=== PATIENT | male | born 1990 | race Caucasian/White ===

== ENCOUNTER 2016-10-19 20:30 | Emergency (ER) | payer SELFPAY ==
[~2016-10-19] VITALS: Ht 175.3 cm; Wt 72.0 kg
[~2016-10-19 20:30] MED LIST: CEPH-460 PO; CLIN1CAP5 PO; DICL75TA PO
[2016-10-19 20:31] VITALS: BP 133/69; PULSE 113; RESP 16; TEMP 99.2; O2SAT 94
--- NOTE | 2016-10-19 20:56 | PD ---
Physical Exam Date Seen by Provider: Oct 19, 2016 Time Seen by Provider: 20:55 Narrative 26 yo male here for "Bad hiccups". Had it for two days. Vomiting because of the hiccups. No abdominal pain. Cannot keep anything down. No history of this in the past. No chest pain. No BM or urinary issues. Vitals are stable in triage. Awaiting Bed placement. Data Data Last Documented VS Vital Signs Date Time Temp Pulse Resp B/P Pulse Ox O2 Delivery O2 Flow Rate FiO2 10/19/16 20:31 99.2 113 16 133/69 94 Room Air [facility] Medical Record Reviewed: Yes Supervised Visit with MOE: Ferny Martinez Oct 19, 2016 20:56
[2016-10-19] MEDS ORDERED: SODIUM CHLOR 0.9% 1000 ML INJ 1,000 ML IV ONE (21:45)
[2016-10-19] MEDS ORDERED: CHLO25TA38 PO (23:12)
--- NOTE | 2016-10-19 23:12 | PD ---
HPI . Hiccups Chief Complaint: GI Complaint Time Seen by Provider: 21:25 Travel History International Travel<30 days: No Contact w/Intl Traveler<30days: No Traveled to known affect area: No History of Present Illness HPI This patient presents with chief complaint of hiccups 2 days. He states that the hiccups are so bad that it is making him vomit. He estimates 23 episodes of emesis today. No diarrhea. No fever. He does report some chest and abdominal soreness related to the hiccups. He has tried several things to relieve the hiccups without success. He has not noted anything that exacerbates them. [facility] Past Medical History GERD: Yes Hepatitis: Yes (C) Respiratory: Yes (PNEUMONIA) Immunizations Current: Yes Pneumonia: Yes Social History Alcohol Use: No (NO LONGER DRINKS) Tobacco Use: Yes (1PPD ) Substance Use: No (HX IV DRUG ABUSE) Allergies-Medications (Allergen,Severity, Reaction): Coded Allergies: Sulfa (Verified Allergy, Severe, 10/19/16) Reported Meds & Prescriptions Reported Meds & Active Scripts Active Review of Systems Except as stated in HPI: all other systems reviewed are Neg General / Constitutional: No: Fever, Chills Cardiovascular: Positive: Chest Pain or Discomfort Gastrointestinal: Positive: Nausea, Vomiting, Abdominal Pain, No: Diarrhea Physical Exam Narrative GENERAL: This patient does have continuous hiccups. SKIN: Warm and dry. HEAD: Atraumatic. Normocephalic. EYES: Pupils equal and round. Extraocular movements are intact. ENT: No nasal bleeding or discharge. Mucous membranes pink and moist. NECK: Trachea midline. Neck is supple. CARDIOVASCULAR: Regular rate and rhythm. Heart sounds are normal. RESPIRATORY: No accessory muscle use. Lungs are clear with full air movement throughout. GASTROINTESTINAL: Abdomen soft, non-tender, nondistended. MUSCULOSKELETAL: No obvious deformities. No edema. NEUROLOGICAL: Awake and alert. No obvious cranial nerve deficits. Motor grossly within normal limits. Normal speech. PSYCHIATRIC: Appropriate mood and affect; insight and judgment normal. Data Data Last Documented VS Vital Signs Date Time Temp Pulse Resp B/P Pulse Ox O2 Delivery O2 Flow Rate FiO2 10/19/16 20:31 99.2 113 16 133/69 94 Room Air Orders Sodium Chlor 0.9% 1000 Ml Inj (Ns 1000 M (10/19/16 21:45) Chlorpromazine Inj (Thorazine Inj) (10/19/16 21:45) [facility] Medical Decision Making Medical Screen Exam Complete: Yes Emergency Medical Condition: Yes Differential Diagnosis Differential diagnosis includes but is not limited to viral gastritis, food poisoning, pancreatitis, pneumonia, hepatitis, acute coronary syndrome, Narrative Course This patient presents with hiccups and vomiting. No diarrhea. No fever. His chest and abdomen are swollen or from the hiccups but he does not really have any abdominal pain. He has been treated with a liter of IV fluids and 50 mg of Thorazine IM. He has had no further emesis. He is not currently having any hiccups. He will be discharged home. Diagnosis Primary Impression: Intractable hiccups Additional Impression: Vomiting Qualified Code: R11.2 - Intractable vomiting with nausea, unspecified vomiting type Patient Instructions: Acute Nausea and Vomiting (DC), General Instructions, Hiccups (DC) Med/Other Pt SpecificInfo: Prescription(s) given Scripts Chlorpromazine 25 Mg Tab50 Mg PO Q4H PRN (hiccups) #30 TAB Ref 0 Prov:Laverne Freedman MD 10/19/16 Laverne Freedman MD Oct 19, 2016 23:12
== END 2016-10-20 00:27 | disposition home or self-care (01) ==
LOC: NEPD 20:30
DX: R06.6 Hiccough (principal); R11.2 Nausea with vomiting, unspecified
CPT/HCPCS: 96360; 96372; 99284; J3230; J7030

== ENCOUNTER 2016-10-21 16:31 | Emergency (ER) | payer SELFPAY ==
[~2016-10-21 16:31] MED LIST changes: -CEPH-460 PO; +CHLO25TA38 PO; -CLIN1CAP5 PO; -DICL75TA PO
[2016-10-21 16:42] VITALS: BP 139/70; PULSE 101; RESP 18; TEMP 99.9; O2SAT 99
== END 2016-10-21 17:30 | disposition left against medical advice (07) ==
LOC: NED 16:31
DX: Z00.8 Encounter for other general examination (principal); Z53.21 Procedure and treatment not carried out due to patient leaving prior to being seen by health care provider
CPT/HCPCS: 99281

== ENCOUNTER 2016-10-21 18:44 | Observation (INO) | payer OTHER ==
[~2016-10-21] VITALS: Ht 180.3 cm; Wt 67.0 kg
[2016-10-21 18:45] VITALS: BP 124/77; PULSE 112; RESP 22; TEMP 101.7; O2SAT 97
--- NOTE | 2016-10-21 21:01 | PD ---
Physical Exam Time Seen by Provider: 20:59 Narrative 26 y/o male presents requesting psychiatric evaluation. Feels suicidal. +Sore throat, chills for several hours. +IVDU, last used 7 hours ago, heroin/ dilaudid. Vital signs reviewed. Seen at triage desk. Awaiting bed placement. Data Data Last Documented VS Vital Signs Date Time Temp Pulse Resp B/P Pulse Ox O2 Delivery O2 Flow Rate FiO2 10/21/16 18:45 101.7 112 22 124/77 97 Room Air [facility] Medical Record Reviewed: Yes Supervised Visit with MOE: Jerman Grimaldo Oct 21, 2016 21:01
--- NOTE | 2016-10-21 21:28 | RADRPT ---
EXAM DATE/TIME: 10/21/2016 21:19 [place] COMPARISON: CHEST SINGLE AP, August 23, 2013, 16:59. INDICATIONS : Fever MEDICAL HISTORY : IVDU SURGICAL HISTORY : None. ENCOUNTER: Initial ACUITY: 1 day PAIN SCORE: 0/10 LOCATION: Bilateral chest FINDINGS: The lungs are clear without infiltrate, nodule, or mass. There is no appreciable pleural effusion fo r technique. Heart and mediastinum are unremarkable. CONCLUSION: No acute cardiopulmonary disease. Raul Arreola MD on October 21, 2016 at 21:26 Board Certified Radiologist. This report was verified electronically.
[2016-10-21] MEDS ORDERED: SODIUM CHLOR 0.9% 1000 ML INJ 1,000 ML IV ONE ×2 (21:45)
[2016-10-21] MEDS ORDERED: IBUPROFEN 800 MG TAB PO ONE (21:45)
--- NOTE | 2016-10-21 21:58 | PD ---
HPI Chief Complaint: Psychiatric Symptoms Time Seen by Provider: 21:48 Travel History International Travel<30 days: No Contact w/Intl Traveler<30days: No Traveled to known affect area: No History of Present Illness HPI 26-year-old white male IV drug abuser presents emergency department on a voluntary basis for psychological evaluation. The patient stated that he had called police so he could get voluntarily [place] acted. He states that he tried to overdose this morning by injecting a large amount of heroin. He states that it did not work he merely fell asleep and then woke up. The patient states his lost everything. He lost his kids a few months ago. His girlfriend and himself just got kicked out of there apartment a few days ago. He is now on the streets. He has nowhere to go. He states that he is given up on life. The patient denies any homicidal ideation. He denies any drug withdrawal currently. He does admit to having a sore throat, headache and general malaise. He denies any skin problems. No neck or back pain. No numbness, tingling or weakness. No abdominal pain or urinary symptoms. No cough or shortness of breath. No rashes or lesions. He states that he's been addicted to drugs for 12 years. The patient states that he has a sober living facility that is going to hold a bed for him at [facility] in [place]. He states the bed will be available on the 27th of this month. He was told that he needs to be sober through detox and have a clean urine to present there. Patient also makes note that he was seen in the ER approximately 2 days ago for nausea vomiting and hiccups. He did not inform them of his IV drug abuse history. He was treated in the ER and discharged home. [facility] Past Medical History Narrative Medical Hepatitis C, pneumonia, IVDA-Dilaudid and heroin. GERD: Yes Hepatitis: Yes (C) Respiratory: Yes (PNEUMONIA) Immunizations Current: Yes Pneumonia: Yes Tetanus Vaccination: < 5 Years Influenza Vaccination: Yes Past Surgical History Surgical History: No Previous Surgery Social History Alcohol Use: No (NO LONGER DRINKS) Tobacco Use: Yes (1PPD ) Substance Use: Yes ( IV DRUG ABUSE, heroin and diluadid today) Allergies-Medications (Allergen,Severity, Reaction): Coded Allergies: Sulfa (Verified Allergy, Severe, 10/21/16) Reported Meds & Prescriptions Reported Meds & Active Scripts Active Review of Systems Except as stated in HPI: all other systems reviewed are Neg General / Constitutional: Positive: Fever, Chills Eyes: No: Diploplia, Blurred Vision HENT: No: Headaches, Neck Stiffness, Neck Pain Cardiovascular: No: Chest Pain or Discomfort, Palpitations Respiratory: No: Cough, Shortness of Breath Gastrointestinal: No: Nausea Genitourinary: No: Frequency, Dysuria Musculoskeletal: No: Myalgias, Arthralgias, Pain Skin: No Rash, No Itching Neurologic: Positive: Weakness, Headache Psychiatric: Positive: Depression, Suicidal Ideations, Mood Disorder, Substance Abuse, No: Anxiety, Disorder of Thought, Homicidal Ideation Physical Exam Narrative GENERAL: Well-nourished, well-developed patient. SKIN: Warm and dry. Patient has a few track carbone in his hands and arms but there is no signs of any infections. HEAD: Normocephalic and atraumatic. EYES: No scleral icterus. No injection or drainage. ENT: No nasal drainage noted. Mucous membranes mildly erythematous in the posterior pharynx. Airway patent. NECK: Supple, trachea midline. Moves head freely without obvious discomfort. He does not appear to have any neck tenderness. Do not believe he has any potential abscess in the neck or spine. CARDIOVASCULAR: Regular tachycardic rate and rhythm without murmurs, gallops, or rubs. RESPIRATORY: Breath sounds equal bilaterally. No accessory muscle use. GASTROINTESTINAL: Abdomen soft, non-tender, nondistended. EXTREMITIES: No cyanosis or edema. BACK: Nontender without obvious deformity. No CVA tenderness. NEURO: Patient is alert and oriented. no sensorimotor deficits. Nonfocal. Normal speech. PSYCH: No delusions. No auditory or visual hallucinations. Data Data Last Documented VS Vital Signs Date Time Temp Pulse Resp B/P Pulse Ox O2 Delivery O2 Flow Rate FiO2 10/21/16 22:48 16 10/21/16 22:06 99.2 95 119/77 98 Room Air Orders Complete Blood Count With Diff (10/21/16 21:01) Comprehensive Metabolic Panel (10/21/16 21:01) Lactic Acid Sepsis Protocol (10/21/16 21:01) Urinalysis - C+S If Indicated (10/21/16 21:01) Influenzae A/B Antigen (10/21/16 21:01) Blood Culture (10/21/16 21:01) Chest, Single Ap (10/21/16 21:01) Group A Rapid Strep Screen (10/21/16 21:01) Drug Screen, Random Urine (10/21/16 21:01) Alcohol (Ethanol) (10/21/16 21:01) Salicylates (Aspirin) (10/21/16 21:01) Tylenol (Acetaminophen) (10/21/16 21:01) Iv Access Insert/Monitor (10/21/16 21:38) Sodium Chlor 0.9% 1000 Ml Inj (Ns 1000 M (10/21/16 21:45) Sodium Chlor 0.9% 1000 Ml Inj (Ns 1000 M (10/21/16 21:45) Ibuprofen (Motrin) (10/21/16 21:45) Psych Screen (10/21/16 21:39) Strep Culture (Group A) (10/21/16 21:40) Labs Laboratory Tests Test 10/21/16 21:40 White Blood Count 7.5 TH/MM3 Red Blood Count 4.26 MIL/MM3 Hemoglobin 12.7 GM/DL Hematocrit 37.3 % Mean Corpuscular Volume 87.6 FL Mean Corpuscular Hemoglobin 29.9 PG Mean Corpuscular Hemoglobin 34.1 % Concent Red Cell Distribution Width 14.0 % Platelet Count 239 TH/MM3 Mean Platelet Volume 7.8 FL Neutrophils (%) (Auto) 69.2 % Lymphocytes (%) (Auto) 19.2 % Monocytes (%) (Auto) 10.8 % Eosinophils (%) (Auto) 0.5 % Basophils (%) (Auto) 0.3 % Neutrophils # (Auto) 5.2 TH/MM3 Lymphocytes # (Auto) 1.4 TH/MM3 Monocytes # (Auto) 0.8 TH/MM3 Eosinophils # (Auto) 0.0 TH/MM3 Basophils # (Auto) 0.0 TH/MM3 CBC Comment DIFF FINAL Differential Comment Urine Color YELLOW Urine Turbidity CLEAR Urine pH 5.5 Urine Specific [place] 1.023 Urine Protein TRACE mg/dL Urine Glucose (UA) NEG mg/dL Urine Ketones 10 mg/dL Urine Occult Blood NEG Urine Nitrite NEG Urine Bilirubin NEG Urine Urobilinogen LESS THAN 2.0 MG/DL Urine Leukocyte Esterase NEG Urine RBC LESS THAN 1 /hpf Urine WBC 1 /hpf Urine Mucus MOD /lpf Microscopic Urinalysis Comment CATH-CULT NOT IND Sodium Level 137 MEQ/L Potassium Level 3.6 MEQ/L Chloride Level 102 MEQ/L Carbon Dioxide Level 28.5 MEQ/L Anion Gap 7 MEQ/L Blood Urea Nitrogen 20 MG/DL Creatinine 0.98 MG/DL Estimat Glomerular Filtration 92 ML/MIN Rate Random Glucose 89 MG/DL Lactic Acid Level 0.8 mmol/L Calcium Level 9.6 MG/DL Total Bilirubin 0.9 MG/DL Aspartate Amino Transf 41 U/L (AST/SGOT) Alanine Aminotransferase 76 U/L (ALT/SGPT) Alkaline Phosphatase 72 U/L Total Protein 7.3 GM/DL Albumin 3.8 GM/DL Salicylates Level LESS THAN 1.7 MG/DL Urine Opiates Screen POS Acetaminophen Level LESS THAN 2.0 MCG/ML Urine Barbiturates Screen NEG Urine Amphetamines Screen NEG Urine Benzodiazepines Screen NEG Urine Cocaine Screen NEG Urine Cannabinoids Screen NEG Ethyl Alcohol Level LESS THAN 3 MG/DL MDM Medical Decision Making Medical Screen Exam Complete: Yes Emergency Medical Condition: Yes Medical Record Reviewed: Yes Interpretation(s) Laboratory Tests Test 10/21/16 21:40 White Blood Count 7.5 TH/MM3 Red Blood Count 4.26 MIL/MM3 Hemoglobin 12.7 GM/DL Hematocrit 37.3 % Mean Corpuscular Volume 87.6 FL Mean Corpuscular Hemoglobin 29.9 PG Mean Corpuscular Hemoglobin 34.1 % Concent Red Cell Distribution Width 14.0 % Platelet Count 239 TH/MM3 Mean Platelet Volume 7.8 FL Neutrophils (%) (Auto) 69.2 % Lymphocytes (%) (Auto) 19.2 % Monocytes (%) (Auto) 10.8 % Eosinophils (%) (Auto) 0.5 % Basophils (%) (Auto) 0.3 % Neutrophils # (Auto) 5.2 TH/MM3 Lymphocytes # (Auto) 1.4 TH/MM3 Monocytes # (Auto) 0.8 TH/MM3 Eosinophils # (Auto) 0.0 TH/MM3 Basophils # (Auto) 0.0 TH/MM3 CBC Comment DIFF FINAL Differential Comment Urine Color YELLOW Urine Turbidity CLEAR Urine pH 5.5 Urine Specific [place] 1.023 Urine Protein TRACE mg/dL Urine Glucose (UA) NEG mg/dL Urine Ketones 10 mg/dL Urine Occult Blood NEG Urine Nitrite NEG Urine Bilirubin NEG Urine Urobilinogen LESS THAN 2.0 MG/DL Urine Leukocyte Esterase NEG Urine RBC LESS THAN 1 /hpf Urine WBC 1 /hpf Urine Mucus MOD /lpf Microscopic Urinalysis Comment CATH-CULT NOT IND Sodium Level 137 MEQ/L Potassium Level 3.6 MEQ/L Chloride Level 102 MEQ/L Carbon Dioxide Level 28.5 MEQ/L Anion Gap 7 MEQ/L Blood Urea Nitrogen 20 MG/DL Creatinine 0.98 MG/DL Estimat Glomerular Filtration 92 ML/MIN Rate Random Glucose 89 MG/DL Lactic Acid Level 0.8 mmol/L Calcium Level 9.6 MG/DL Total Bilirubin 0.9 MG/DL Aspartate Amino Transf 41 U/L (AST/SGOT) Alanine Aminotransferase 76 U/L (ALT/SGPT) Alkaline Phosphatase 72 U/L Total Protein 7.3 GM/DL Albumin 3.8 GM/DL Salicylates Level LESS THAN 1.7 MG/DL Urine Opiates Screen POS Acetaminophen Level LESS THAN 2.0 MCG/ML Urine Barbiturates Screen NEG Urine Amphetamines Screen NEG Urine Benzodiazepines Screen NEG Urine Cocaine Screen NEG Urine Cannabinoids Screen NEG Ethyl Alcohol Level LESS THAN 3 MG/DL Last 24 hours Impressions Chest X-Ray 10/21/162100 Signed Impressions: Service Date/Time: , October 21, 2016 21:19 - CONCLUSION: No acute cardiopulmonary disease. Raul Arreola MD Differential Diagnosis MDM: High Differential diagnoses: Sepsis, pneumonia, bipolar, anxiety, depression, adjustment reaction, mood disorder NOS, substance induced mood disorder, infection,electrolyte abnormality, malingering. Narrative Course IV: access is obtained. Patient is given 2 L bolus of saline, Motrin 800 mg by mouth. Basic laboratory tests include CBC, chemistry, lactic, influenza, chest x-ray, drug screen, EtOH blood cultures 2. The patient's vital signs are now normalizing. His initial workup here in the ER is unrevealing for a source of any infection. There is still a concern that this patient has a fever of unknown origin with IV drug abuse he will need to be admitted to the hospital for following his blood cultures and possibly an echocardiogram. I discussed the case with Dr. EVANS who is agreed to admit the patient for an observation period and have psychiatry consult on this patient. I do not believe a sitter is indicated at this time. This is fever of unknown origin, IVDA, depression with SI Diagnosis Primary Impression: Fever of unknown origin (FUO) Additional Impressions: IVDA (intravenous drug abuse) complicating depression with SI Alessio Gerard Oct 21, 2016 21:58
[2016-10-21 22:06] VITALS: BP 119/77; PULSE 95; RESP 16; TEMP 99.2; O2SAT 98
[2016-10-21 22:07] LABS: AUTOMATED NEUTROPHIL # 5.2 TH/MM3 (1.8-7.7); BASOPHIL % 0.3 % (0.0-2.0); EOSINOPHIL % 0.5 % (0.0-4.0); HEMATOCRIT 37.3 % (39.0-51.0); HEMO FLAGS DIFF FINAL; LYMPH % 19.2 % (9.0-44.0); LYMPHOCYTE # 1.4 TH/MM3 (1.0-4.8); MEAN CELL VOLUME 87.6 FL (80.0-100.0); MEAN CORPUSCULAR HEMOGLOBIN 29.9 PG (27.0-34.0); MEAN CORPUSCULAR HGB CONC 34.1 % (32.0-36.0); MONO % 10.8 % (0.0-8.0); NEUT % 69.2 % (16.0-70.0); PLATELET COUNT 239 TH/MM3 (150-450); RED BLOOD COUNT 4.26 MIL/MM3 (4.50-5.90); WHITE BLOOD COUNT 7.5 TH/MM3 (4.0-11.0)
[2016-10-21 22:10] LABS: AMPHETAMINE, URINE NEG (NEG); BARBITURATES, URINE NEG (NEG); COCAINE, URINE NEG (NEG)
[2016-10-21 22:16] LABS: ALT (GPT) 76 U/L (12-78); ANION GAP 7 MEQ/L (5-15); AST (GOT) 41 U/L (15-37); BICARBONATE 28.5 MEQ/L (21.0-32.0); BLOOD UREA NITROGEN 20 MG/DL (7-18); CHLORIDE 102 MEQ/L (98-107); GLOMERULAR FILTRATION RATE 92 ML/MIN (>89); POTASSIUM 3.6 MEQ/L (3.5-5.1); SODIUM (NA) 137 MEQ/L (136-145)
[2016-10-21 22:19] LABS: ACETAMINOPHEN LESS THAN 2.0 MCG/ML (10.0-30.0); ALKALINE PHOSPHATASE 72 U/L (45-117); TOTAL BILIRUBIN ADULT 0.9 MG/DL (0.2-1.0)
[2016-10-21 22:21] LABS: BLOOD, URINE NEG (NEG); GLUCOSE,URINE NEG (NEG); KETONE, URINE 10 mg/dL (NEG); MUCUS URINE MOD /lpf (OCC); NITRITE,URINE NEG (NEG); PH, URINE 5.5 (5.0-8.5); URINE COLOR YELLOW (YELLW/STRAW)
[2016-10-21 22:22] LABS: COMMENT (UR) CATH-CULT NOT IND; CULTURE IF INDICATED CATH CULTURE NOT IND
[2016-10-21] MEDS ORDERED: NALOXONE HCL 0.4 MG/ML AMP IV PRN (23:15)
[2016-10-21] MEDS ORDERED: SODIUM CHLORIDE 0.9% FLUSH 10 ML FLUSH IV FLUSH PRN (23:15)
[2016-10-21] MEDS ORDERED: ONDANSETRON HCL 4 MG/2 ML VIAL IV PUSH PRN (23:30)
[2016-10-21] MEDS ORDERED: ACETAMINOPHEN 325 MG TAB PO PRN (23:30)
[2016-10-21] MEDS: SODIUM CHLOR 0.9% 1000 ML INJ 1,000 ML IV SCH (23:45)
[2016-10-22] VITALS (12 sets, daily range): BP systolic 100–120; BP diastolic 55–73; PULSE 51–88; RESP 16–20; TEMP 97–98; O2SAT 96–99
[2016-10-22 07:31] LABS: AUTOMATED NEUTROPHIL # 3.6 TH/MM3 (1.8-7.7); BASOPHIL % 0.4 % (0.0-2.0); EOSINOPHIL # 0.1 TH/MM3 (0-0.4); EOSINOPHIL % 1.8 % (0.0-4.0); HEMATOCRIT 34.3 % (39.0-51.0); HEMO FLAGS DIFF FINAL; LYMPHOCYTE # 1.3 TH/MM3 (1.0-4.8); MEAN CELL VOLUME 87.8 FL (80.0-100.0); MEAN CORPUSCULAR HEMOGLOBIN 30.1 PG (27.0-34.0); MEAN CORPUSCULAR HGB CONC 34.2 % (32.0-36.0); NEUT % 61.8 % (16.0-70.0); PLATELET COUNT 179 TH/MM3 (150-450); RED BLOOD COUNT 3.91 MIL/MM3 (4.50-5.90); RED CELL DISTRIBUTION WIDTH 14.3 % (11.6-17.2); WHITE BLOOD COUNT 5.8 TH/MM3 (4.0-11.0)
[2016-10-22 07:46] LABS: BICARBONATE 28.5 MEQ/L (21.0-32.0); POTASSIUM 3.7 MEQ/L (3.5-5.1)
[2016-10-22] MEDS: SODIUM CHLORIDE 0.9% FLUSH 10 ML FLUSH IV FLUSH SCH ×2 (09:00→21:00)
[2016-10-22] MEDS: SODIUM CHLOR 0.9% 1000 ML INJ 1,000 ML IV SCH ×2 (09:47→19:38)
--- NOTE | 2016-10-22 10:53 | PD.PSY.CON ---
Provisional Diagnosis Admission Date Oct 21, 2016 at 23:10 Aurora I. Major depressive disorder, opiates use disorder, Aurora II. Referred Aurora III. No significant medical history History of Present Illness Service Psychiatry Consult Requested By Primary Care Physician No Primary Care Physician HPI The patient is a 26-year-old man, homeless, single, unemployed, with psychiatric history of opiate use disorder, IV drug abuser, no psychiatric hospitalizations, no previous suicidal attempts, no significant medical history , who presents emergency department on a voluntary basis for psychological evaluation. The patient stated that he had called police so he could get voluntarily Méndez acted. He states that he tried to overdose this morning by injecting a large amount of heroin. He states that it did not work he merely fell asleep and then woke up and he was alive. Patient reports that he has been very depressed in the last weeks, his major stressor is his drug addiction. Patient feels hopeless, helpless, worthless, with very low self- esteem, the sadness and frequent suicidal ideation. The patient states his lost everything and he has been don't that he'll. His girlfriend and himself just got kicked out of there apartment a few days ago, his girlfriend now left him because just trying to get sober in a rehabilitation program. The patient denies any homicidal ideation, visual and auditory hallucinations. Patient is oriented 3.. He states that he's been addicted to drugs for 12 years. The patient states that he has a sober living facility that is going to hold a bed for him at [facility] in [place]. He states the bed will be available on the of this month. He was told that he needs to be sober through detox and have a clean urine to present there. At the moment of this evaluation patient reports opiate withdrawal symptoms, mostly consisting in fatigued, lacrimation, itchiness, nausea, body pain. Patient denies the use of other illicit drugs and alcohol. Review of Systems Constitutional: COMPLAINS OF: Fatigue, Change in appetite, DENIES: Diaphoretic episodes, Fever, Weight gain, Weight loss, Chills, Dizziness, Night Sweats Endocrine: DENIES: Heat/cold intolerance, Polydipsia, Polyuria, Polyphagia Eyes: DENIES: Blurred vision, Diplopia, Eye inflammation, Eye pain, Vision loss , Photosensitivity, Double Vision Ears, nose, mouth, throat: DENIES: Tinnitus, Hearing loss, Vertigo, Nasal discharge, Oral lesions, Throat pain, Hoarseness, Ear Pain, Running Nose, Epistaxis, Sinus Pain, Toothache, Odynophagia Respiratory: DENIES: Apneas, Cough, Snoring, Wheezing, Hemoptysis, Sputum production, Shortness of breath Cardiovascular: DENIES: Chest pain, Palpitations, Syncope, Dyspnea on Exertion , PND, Lower Extremity Edema, Orthopnea, Claudication Gastrointestinal: COMPLAINS OF: Nausea, DENIES: Abdominal pain, Black stools, Bloody stools, Constipation, Diarrhea, Vomiting, Difficulty Swallowing, Anorexia Musculoskeletal: COMPLAINS OF: Joint pain, DENIES: Muscle aches, Stiffness, Joint Swelling, Back pain, Neck pain Integumentary: DENIES: Abnormal pigmentation, Nail changes, Pruritus, Rash Hematologic/lymphatic: DENIES: Bruising, Lymphadenopathy Immunologic/allergic: DENIES: Eczema, Urticaria Neurologic: DENIES: Abnormal gait, Headache, Localized weakness, Paresthesias, Seizures, Speech Problems, Tremor, Poor Balance Psychiatric: COMPLAINS OF: Mood changes, Suicidal Ideation, DENIES: Anxiety, Confusion, Depression, Hallucinations, Agitation, Homicidal Ideation, Delusions Past Family Social History Coded Allergies: Sulfa (Verified Allergy, Severe, 10/21/16) Discontinued Scripts Chlorpromazine 25 Mg Tab50 Mg PO Q4H PRN (hiccups) #30 TAB Ref 0 Prov:Laverne Freedman MD 10/19/[address] 75 Mg Tabdr75 Mg PO Q12HR PRN (PAIN SCALE 1 TO 10) #14 TAB Ref 0 Prov:Luis Manuel Weiss MD 04/10/16 Cephalexin (Keflex)500 Mg Shl025 Mg PO Q6H 10 Days Ref 0 Prov:Luis Manuel Weiss MD 04/10/16 Clindamycin 150 Mg Cap2 Tab PO Q6H 10 Days Ref 0 Prov:Luis Manuel Weiss MD 04/10/16 Current Medications Medications (Trade) Dose Ordered Sig/Ubaldo Route Start Time Stop Time Status Last Admin (NS 1000 ml Inj) 1,000 ml @ 100 mls/hr Q10H IV 10/21/16 23:15 10/22/16 09:47 (NS Flush) 2 ml UNSCH PRN IV FLUSH 10/21/16 23:15 (NS Flush) 2 ml BID IV FLUSH 10/22/16 09:00 (Narcan Inj) 0.4 mg UNSCH PRN IV 10/21/16 23:15 (Zofran Inj) 4 mg Q6H PRN IV PUSH 10/21/16 23:30 (Tylenol) 650 mg Q4H PRN PO 10/21/16 23:30 Family History He denies significant family history Social History Patient was born and raised in [place], he lives in [place], homeless, single, unemployed, highest level of education is high school Patient's Strengths (min. 2) Verbal communication Physical Exam On physical exam the patient has visible lacrimation, he seems to be hypoactive , with marked psychomotor retardation, seems to be in acute distress and pain, but no tremors, no EPS Vital Signs Vital Signs Date Time Temp Pulse Resp B/P Pulse Ox O2 Delivery O2 Flow Rate FiO2 10/22/16 08:12 97.0 65 18 100/65 96 10/21/16 22:06 Room Air I/O 10/21/16 10/21/16 10/22/16 08:00 16:00 00:00 Intake Total 350 ml Balance 350 ml Lab Results Labs Laboratory Tests Test 10/21/16 21:40 White Blood Count 7.5 TH/MM3 Red Blood Count 4.26 MIL/MM3 Hemoglobin 12.7 GM/DL Hematocrit 37.3 % Mean Corpuscular Volume 87.6 FL Mean Corpuscular Hemoglobin 29.9 PG Mean Corpuscular Hemoglobin 34.1 % Concent Red Cell Distribution Width 14.0 % Platelet Count 239 TH/MM3 Mean Platelet Volume 7.8 FL Neutrophils (%) (Auto) 69.2 % Lymphocytes (%) (Auto) 19.2 % Monocytes (%) (Auto) 10.8 % Eosinophils (%) (Auto) 0.5 % Basophils (%) (Auto) 0.3 % Neutrophils # (Auto) 5.2 TH/MM3 Lymphocytes # (Auto) 1.4 TH/MM3 Monocytes # (Auto) 0.8 TH/MM3 Eosinophils # (Auto) 0.0 TH/MM3 Basophils # (Auto) 0.0 TH/MM3 CBC Comment DIFF FINAL Differential Comment Urine Color YELLOW Urine Turbidity CLEAR Urine pH 5.5 Urine Specific [place] 1.023 Urine Protein TRACE mg/dL Urine Glucose (UA) NEG mg/dL Urine Ketones 10 mg/dL Urine Occult Blood NEG Urine Nitrite NEG Urine Bilirubin NEG Urine Urobilinogen LESS THAN 2.0 MG/DL Urine Leukocyte Esterase NEG Urine RBC LESS THAN 1 /hpf Urine WBC 1 /hpf Urine Mucus MOD /lpf Microscopic Urinalysis Comment CATH-CULT NOT IND Sodium Level 137 MEQ/L Potassium Level 3.6 MEQ/L Chloride Level 102 MEQ/L Carbon Dioxide Level 28.5 MEQ/L Anion Gap 7 MEQ/L Blood Urea Nitrogen 20 MG/DL Creatinine 0.98 MG/DL Estimat Glomerular Filtration 92 ML/MIN Rate Random Glucose 89 MG/DL Lactic Acid Level 0.8 mmol/L Calcium Level 9.6 MG/DL Total Bilirubin 0.9 MG/DL Aspartate Amino Transf 41 U/L (AST/SGOT) Alanine Aminotransferase 76 U/L (ALT/SGPT) Alkaline Phosphatase 72 U/L Total Protein 7.3 GM/DL Albumin 3.8 GM/DL Salicylates Level LESS THAN 1.7 MG/DL Urine Opiates Screen POS Acetaminophen Level LESS THAN 2.0 MCG/ML Urine Barbiturates Screen NEG Urine Amphetamines Screen NEG Urine Benzodiazepines Screen NEG Urine Cocaine Screen NEG Urine Cannabinoids Screen NEG Ethyl Alcohol Level LESS THAN 3 MG/DL Mental Status Examination Appearance man, good hygiene, skinny, age appearing, tearful, distant, distress, but cooperate Speech: Unremarkable Orientation: x3 Memory: Unremarkable Thought Process: Logical, Goal Directed, Linear Thought Content: Unremarkable Language Corrected naming, use of pronouns and sentences Fund of Knowledge Adequate for his level of education Hallucination Type: None Attention and Concentration: Good Suicidal Ideation: Yes Previous Suicide Attempts: Yes Homicidal Ideation: No Previous Homicide Attempts: No Insight: Poor Affect: Irritable, Sad Mood: Sad Motor Activity: Normal gait Assessment & Plan Problem List: (1) Depression Assessment & Plan: Patient shows symptoms of depression consisting increased hopelessness, helplessness, low self esteem, decreased energy, decreased sensitivity to rejection and frustration, suicidal ideation with plan of OD. Acute stressors are homelessness, recent breakup with girlfriend, unemployment, continues drugs use. All usually, opiate withdrawal also could be contributing with depressed mood. He has recently attempted to suicide by OD with heroine. He represents an increased risk for suicidality at this moment. He will be admitted in psychiatry for stabilization and safety. Will order clonidine 0.2 mg stat, Benadryl 50 mg stat for acute symptoms of opiate withdrawal. Extensive support, motivation psycho education provided. Transfer to psychiatry once medically stable. ICD Code: F32.9 Assessment & Plan Estimated LOS: days Problem Qualifiers (1) Depression: Troy Gomes MD Oct 22, 2016 10:53
[2016-10-22] MEDS ORDERED: cloNIDine HCL 0.2 MG TAB PO ONE (12:00)
[2016-10-22] MEDS ORDERED: diphenhydrAMINE HCL 50 MG CAP PO ONE (12:00)
[2016-10-22] MEDS ORDERED: IBUPROFEN 600 MG TAB PO PRN (12:00)
--- NOTE | 2016-10-22 12:18 | HHI.HP ---
[facility] No Primary Care Physician Admission Diagnosis fever of unknown origin, IVDA, depression with SI Diagnoses: Chief Complaint: Depression Travel History International Travel<30 Days: No Contact w/Intl Traveler <30 Da: No Traveled to Known Affected Are: No Sepsis Criteria SIRS Criteria (2 or more): Temp > 100.9 or < 96.8, Heart rate over 90 Criteria Outcome: Meets SIRS criteria History of Present Illness 26-year-old male with a past medical history of IV drug abuse who presented for depression and admitted for fever. The patient presented to the emergency department and a voluntary basis for psychiatric evaluation for depression. He had tried to overdose on IV hair 1 yesterday morning prior to admission. He wants to get off of IV drugs. He was evaluated by psychiatry who recommended psychiatric treatment once medically cleared. The patient was admitted for fever and tachycardia. He denies any cough, shortness breath, chest pain, vomiting, diarrhea. He does feel like he has been going through withdrawals which she has done before. He describes his symptoms as nausea, anxiety, leg and back pain, sweats, feeling cold. He denies any specific fever or chills. He denies any skin lesions or rashes other than hand injection sites which are not red or swollen. Review of Systems Except as stated in HPI: all other systems reviewed are Neg Past Family Social History Past Medical History Possible history of hepatitis C, positive here in 2013, and reportedly negative test in intermediate last year IV drug abuse with opioids Past Surgical History None Reported Medications None Allergies: Coded Allergies: Sulfa (Verified Allergy, Severe, 10/21/16) Active Ordered Medications Current Medications Medications (Trade) Dose Ordered Sig/Ubaldo Route Start Time Stop Time Status Last Admin (NS 1000 ml Inj) 1,000 ml @ 100 mls/hr Q10H IV 10/21/16 23:15 10/22/16 09:47 (NS Flush) 2 ml UNSCH PRN IV FLUSH 10/21/16 23:15 (NS Flush) 2 ml BID IV FLUSH 10/22/16 09:00 (Narcan Inj) 0.4 mg UNSCH PRN IV 10/21/16 23:15 (Zofran Inj) 4 mg Q6H PRN IV PUSH 10/21/16 23:30 (Tylenol) 650 mg Q4H PRN PO 10/21/16 23:30 10/22/16 11:32 (Catapres) 0.2 mg ONCE PO 10/22/16 12:00 UNV (Benadryl) 50 mg ONCE ONCE PO 10/22/16 12:00 10/22/16 12:01 UNV (Motrin) 600 mg Q8H PRN PO 10/22/16 12:00 UNV Family History Reviewed, no family history pertinent with current chief complaint Social History IV drug abuse with heroin and Dilaudid Smokes one pack per day Denies any alcohol use Physical Exam Vital Signs Vital Signs Date Time Temp Pulse Resp B/P Pulse Ox O2 Delivery O2 Flow Rate FiO2 10/22/16 08:12 97.0 65 18 100/65 96 10/22/16 07:13 56 10/22/16 04:58 97.8 51 19 102/55 99 10/22/16 04:54 56 10/22/16 01:10 98.0 74 16 108/62 98 10/21/16 22:48 16 10/21/16 22:06 99.2 95 16 119/77 98 Room Air 10/21/16 18:45 101.7 112 22 124/77 97 Room Air Physical Exam GENERAL: Well-developed well-nourished. In no acute distress. SKIN: Warm and dry. Track carbone on the dorsum of both hands with no surrounding erythema or fluctuance. HEENT: Normocephalic. Pupils equal and round. Mucous membranes pink and moist. CARDIOVASCULAR: Regular rate and rhythm. No murmur appreciated. RESPIRATORY: No accessory muscle use. Clear to auscultation. Breath sounds equal bilaterally. GASTROINTESTINAL: Abdomen soft, non-tender, nondistended. Bowel sounds x4. MUSCULOSKELETAL: No obvious deformities. No clubbing or cyanosis. No edema. NEUROLOGICAL: Awake and alert. No focal neurological deficits. Moves upper and lower extremities spontaneously. Normal speech. PSYCHIATRIC: Depressed mood and affect; insight and judgment normal. Laboratory Laboratory Tests Test 10/21/16 10/22/16 21:40 06:10 White Blood Count 7.5 5.8 Red Blood Count 4.26 3.91 Hemoglobin 12.7 11.7 Hematocrit 37.3 34.3 Mean Corpuscular Volume 87.6 87.8 Mean Corpuscular Hemoglobin 29.9 30.1 Mean Corpuscular Hemoglobin 34.1 34.2 Concent Red Cell Distribution Width 14.0 14.3 Platelet Count 239 179 Mean Platelet Volume 7.8 8.0 Neutrophils (%) (Auto) 69.2 61.8 Lymphocytes (%) (Auto) 19.2 23.0 Monocytes (%) (Auto) 10.8 13.0 Eosinophils (%) (Auto) 0.5 1.8 Basophils (%) (Auto) 0.3 0.4 Neutrophils # (Auto) 5.2 3.6 Lymphocytes # (Auto) 1.4 1.3 Monocytes # (Auto) 0.8 0.8 Eosinophils # (Auto) 0.0 0.1 Basophils # (Auto) 0.0 0.0 CBC Comment DIFF FINAL DIFF FINAL Differential Comment Urine Color YELLOW Urine Turbidity CLEAR Urine pH 5.5 Urine Specific [place] 1.023 Urine Protein TRACE Urine Glucose (UA) NEG Urine Ketones 10 Urine Occult Blood NEG Urine Nitrite NEG Urine Bilirubin NEG Urine Urobilinogen LESS THAN 2.0 Urine Leukocyte Esterase NEG Urine RBC LESS THAN 1 Urine WBC 1 Urine Mucus MOD Microscopic Urinalysis Comment CATH-CULT NOT IND Sodium Level 137 141 Potassium Level 3.6 3.7 Chloride Level 102 108 Carbon Dioxide Level 28.5 28.5 Anion Gap 7 5 Blood Urea Nitrogen 20 18 Creatinine 0.98 0.80 Estimat Glomerular Filtration 92 116 Rate Random Glucose 89 107 Lactic Acid Level 0.8 Calcium Level 9.6 8.8 Total Bilirubin 0.9 Aspartate Amino Transf 41 (AST/SGOT) Alanine Aminotransferase 76 (ALT/SGPT) Alkaline Phosphatase 72 Total Protein 7.3 Albumin 3.8 Salicylates Level LESS THAN 1.7 Urine Opiates Screen POS Acetaminophen Level LESS THAN 2.0 Urine Barbiturates Screen NEG Urine Amphetamines Screen NEG Urine Benzodiazepines Screen NEG Urine Cocaine Screen NEG Urine Cannabinoids Screen NEG Ethyl Alcohol Level LESS THAN 3 Date/Time Procedure Status Source Growth 10/21/16 21:40 Influenza Types A,B Antigen (JOHN) - Final Complete Nasal Aspirate NEGATIVE FOR FLU A AND B ANTIGEN.... 10/21/16 21:40 Group A Streptococcus Screen - Preliminary Resulted Throat NO BETA STREPTOCOCCI ISOLATED AT 24 H... 10/21/16 21:40 Group A Streptococcus Screen (JOHN) - Final Complete Throat 10/21/16 21:40 Aerobic Blood Culture - Preliminary Resulted Blood Peripheral NO GROWTH IN 1 DAY 10/21/16 21:40 Anaerobic Blood Culture - Preliminary Resulted Blood Peripheral NO GROWTH IN 1 DAY Result Diagram: 10/22/16 0610 10/22/16 0610 Imaging Last Impressions Chest X-Ray 10/21/162100 Signed Impressions: Service Date/Time: October 21:19 - CONCLUSION: No acute cardiopulmonary disease. Raul Arreola MD Assessment and Plan Assessment and Plan 26-year-old male with a past medical history of IV drug abuse who presented for depression and admitted for fever SIRS: Presented with temperature 101.7 and tachycardia. Caution with history of IVDA. No further fevers. Tachycardia has improved. No leukocytosis. Chest x-ray and UA are clear. Blood cultures with no growth 1 day. IVF. Follow-up blood cultures. Watch for further signs of infection. Depression/suicidal intent: Reports attempted suicidal overdose prior to admission. Presented voluntarily. Psychiatry was consulted, recommends inpatient psychiatry. Sitter. Possible OP withdrawal: Psychiatry has placed orders for clonidine, Benadryl, and ibuprofen. Continue IVF and Zofran. Possible history of hepatitis C: Positive test here in 2013 and reported negative test in 2016. Recommended patient follow-up as outpatient. Discussed Condition With Patient with sitter at bedside, Albert Eaton Oct 22, 2016 12:18
[2016-10-22] MEDS ORDERED: cloNIDine HCL 0.1 MG TAB PO PRN (18:00)
[2016-10-23 00:05] VITALS: PULSE 90
[2016-10-23 00:42] VITALS: BP 129/58; PULSE 91; RESP 18; TEMP 98.1; O2SAT 97
[2016-10-23 04:00] VITALS: BP 120/60; PULSE 67; RESP 21; TEMP 98; O2SAT 99
[2016-10-23 04:09] VITALS: PULSE 69
[2016-10-23] MEDS: SODIUM CHLOR 0.9% 1000 ML INJ 1,000 ML IV SCH (04:43)
[2016-10-23 08:00] VITALS: PULSE 78
[2016-10-23 08:29] VITALS: BP 113/62; PULSE 76; RESP 20; TEMP 98.2; O2SAT 96
--- NOTE | 2016-10-23 08:40 | HHI.DCPOC ---
Discharge Care Plan Diagnosis: (1) Depression (2) IV drug abuse (3) Fever of unknown origin (FUO) Goals to Promote Your Health * To prevent worsening of your condition and complications * To maintain your health at the optimal level Directions to Meet Your Goals Take your medications as prescribed Follow your dietary instruction Follow activity as directed Keep your appointments as scheduled Take your immunizations and boosters as scheduled If your symptoms worsen call your PCP, if no PCP go to Urgent Care Center or Emergency Room Smoking is Dangerous to Your Health. Avoid second hand smoke Call the 24-hour hour crisis hotline for domestic abuse at David Quigley DO Oct 23, 2016 08:40
--- NOTE | 2016-10-23 08:44 | HHI.PR ---
Subjective Remarks The pt was still feeling depressed. He understood he would be going to psychiatry. He said he tried to kill himself by overdosing. He has no physical complaints. Sitter at bedside. Objective Vitals Vital Signs Date Time Temp Pulse Resp B/P Pulse Ox O2 Delivery O2 Flow Rate FiO2 10/23/16 08:29 98.2 76 20 113/62 96 10/23/16 04:09 69 10/23/16 04:00 98.0 67 21 120/60 99 10/23/16 00:42 98.1 91 18 129/58 97 10/23/16 00:32 18 10/23/16 00:05 90 10/22/16 20:12 98.0 78 18 108/70 99 10/22/16 20:00 88 10/22/16 16:28 97.5 68 20 120/60 96 10/22/16 16:00 77 10/22/16 12:17 97.9 72 18 120/73 96 10/22/16 12:00 72 I/O 10/22/16 10/22/16 10/22/16 10/23/16 10/23/16 10/23/16 06:59 14:59 22:59 06:59 14:59 22:59 Intake Total 350 ml 2400 ml Balance 350 ml 2400 ml Intake Oral 350 ml 1200 ml IV Total 1200 ml # Voids 8 Result Diagram: 10/22/16 0610 10/22/16 0610 Imaging Last Impressions Chest X-Ray 10/21/16 2101 Signed Impressions: Service Date/Time: October 21:19 - CONCLUSION: No acute cardiopulmonary disease. Raul Arreola MD Objective Remarks GENERAL: NAD, resting comfortably. SKIN: Warm and dry. HEAD: Atraumatic. Normocephalic. EYES: Pupils equal and round. No scleral icterus. No injection or drainage. ENT: No nasal bleeding or discharge. Mucous membranes pink and moist. NECK: Trachea midline. No JVD. CARDIOVASCULAR: Regular rate and rhythm. RESPIRATORY: No accessory muscle use. Clear to auscultation. Breath sounds equal bilaterally. GASTROINTESTINAL: Abdomen soft, non-tender, nondistended. Hepatic and splenic margins not palpable. MUSCULOSKELETAL: Extremities without clubbing, cyanosis, or edema. No obvious deformities. NEUROLOGICAL: Awake and alert. No obvious cranial nerve deficits. Motor grossly within normal limits. Five out of 5 muscle strength in the arms and legs. Normal speech. PSYCHIATRIC: Flat affect. Medications and IVs Current Medications Medications (Trade) Dose Ordered Sig/Ubaldo Route Start Time Stop Time Status Last Admin (NS 1000 ml Inj) 1,000 ml @ 100 mls/hr Q10H IV 10/21/16 23:15 10/23/16 04:43 (NS Flush) 2 ml UNSCH PRN IV FLUSH 10/21/16 23:15 (NS Flush) 2 ml BID IV FLUSH 10/22/16 09:00 (Narcan Inj) 0.4 mg UNSCH PRN IV 10/21/16 23:15 (Zofran Inj) 4 mg Q6H PRN IV PUSH 10/21/16 23:30 10/23/16 08:03 (Tylenol) 650 mg Q4H PRN PO 10/21/16 23:30 10/22/16 11:32 (Motrin) 600 mg Q8H PRN PO 10/22/16 12:00 10/22/16 23:25 (Catapres) 0.1 mg Q6H PRN PO 10/22/16 18:00 A/P Assessment and Plan 26-year-old male with a past medical history of IV drug abuse who presented for depression and admitted for fever SIRS: Presented with temperature 101.7 and tachycardia. No further fevers. Tachycardia has resolved. No leukocytosis. Chest x-ray and UA are clear. Blood cultures with no growth 1 day. IVF. Follow-up blood cultures. Stable. Depression/suicidal intent: Reports attempted suicidal overdose prior to admission. Presented voluntarily. Psychiatry was consulted, recommends inpatient psychiatry. Sitter. D/c to inpatient psychiatry. Possible OP withdrawal: Psychiatry has placed orders for clonidine, Benadryl, and ibuprofen. Continue IVF and Zofran. Stable. Possible history of hepatitis C: Positive test here in 2013 and reported negative test in 2016. Recommended patient follow-up as outpatient. Anemia Possibly dilutional. - outpt follow-up. PPx: Ambulation Discharge Planning D/c to psych David Quigley DO Oct 23, 2016 08:44
[2016-10-23] MEDS: SODIUM CHLORIDE 0.9% FLUSH 10 ML FLUSH IV FLUSH SCH (09:00)
--- NOTE | 2016-10-23 12:40 | HHI.PYPN ---
Subjective Remarks I was asked to reevaluate this patient from a psychiatric standpoint. Patient seen and examined. Chart reviewed. I note that Dr. Gomes evaluated the patient yesterday when he was reporting a perfusion of psychiatric symptoms and recommended psychiatric admission at that time. Patient is presently under voluntary psychiatric admission status it appears. I see no Méndez Act. Case discussed with nursing staff. No evidence of suicidality or homicidality while under observation in the CDU. On my examination today, the patient seems quite animated and eager to leave. The patient says that he came here because he was homeless. He says that he told Dr. 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 The patient admits to a long-standing history of IV opiate abuse. He presently denies any suicidal or homicidal ideation, intent or plan on direct questioning and contracts for safety. He denies any significant mood symptoms and I can elicit no depressive or hypomanic/manic symptoms at this time. He denies any audiovisual hallucinations and I can elicit no delusional material. The remainder of the psychiatric ROS is negative. The patient is requesting psychiatric clearance for discharge. With the patient's permission, I have obtained collateral from his fianc Bernadineraymond Olea. She notes that the family's plan is for the patient to enter into chemical dependency treatment. She is supportive of this plan. She has no concerns about the patient being a risk of harm to himself or others. She is comfortable with him leaving the hospital today and not being psychiatrically admitted. Past psychiatric history: Patient denies a history of psychiatric issues other than the substance use. He denies a history of inpatient or outpatient psychiatric treatment. Denies a history of suicide attempts. Family history: Patient denies a family history of serious mental illness, substance use disorder or suicide. Chemical dependency history: Patient admits to long-standing history of IV heroin abuse. He says that his plan is to go to rehabilitation and subsequently to a senior living house. He denies any other substance use. Social history: The patient has a fianc and 2 children including a . He is high school educated with some college. He works at a company called [employer]. He denies any history. He denies any history of violent crime but does endorse a history of drug crime. He denies any access to guns or firearms. He is a Alevism and says he would not hurt himself for this reason. Review of Systems Except as stated in HPI: all other systems reviewed are Neg Objective Alert: Yes [place]: Person (O x 3. No delirium.) Mood: Anxious Affect: Blunted Memory Intact: Comment (Intact on clinical exam) Hallucinations: Other (Denies AVH) Delusions: No Delusion Type: Other (No delusions elicited) Suicidal: Intent (Denies), Plan (Denies), Ideation (Denies) Homicidal: Intent (Denies), Plan (Denies), Ideation (Denies) Insight/Judgment Fair at best Remarks No motor abnormalities noted. No signs of opiate withdrawal. Thought process linear. Speech within normal limits for rate, tone and volume. Labs Date/Time Procedure Status Source Growth 10/21/16 21:40 Influenza Types A,B Antigen (JOHN) - Final Complete Nasal Aspirate NEGATIVE FOR FLU A AND B ANTIGEN.... 10/21/16 21:40 Group A Streptococcus Screen - Final Complete Throat NO GP A BETA STREP ISOLATED. 10/21/16 21:40 Group A Streptococcus Screen (JOHN) - Final Complete Throat 10/21/16 21:40 Aerobic Blood Culture - Preliminary Resulted Blood Peripheral NO GROWTH IN 2 DAYS 10/21/16 21:40 Anaerobic Blood Culture - Preliminary Resulted Blood Peripheral NO GROWTH IN 2 DAYS Labs reviewed. Vitals/IOs Vital Signs Date Time Temp Pulse Resp B/P Pulse Ox O2 Delivery O2 Flow Rate FiO2 10/23/16 08:29 98.2 76 20 113/62 96 10/21/16 22:06 Room Air Intake and Output 10/22/16 10/22/16 10/23/16 08:00 16:00 00:00 Intake Total 2400 ml Balance 2400 ml Assessment & Plan Problem List: (1) Opiate dependence ICD Code: F11.20 (2) Malingering ICD Code: Z76.5 Assessment & Plan This is a 26-year-old male with psychiatric history as detailed above presently admitted to the CDU. On my examination today, the patient admits to malingering suicidal ideation as detailed above. He denies any suicidal or homicidal ideation, intent or plan on direct questioning. There is no evidence of any unstable mood, anxiety or psychotic disorder in this patient at this time. He appears to be attending to his basic needs. I have obtained reassuring collateral from his fianc. Putting all this information together and weighing the relevant factors, I rental car deliverer the patient does not presently meet criteria for involuntary psychiatric hospitalization. Since he is declining voluntary psychiatric hospitalization today and he does not meet criteria for involuntary psychiatric hospitalization, I must recommend his discharge from a psychiatric standpoint. I have counseled the patient to pursue chemical dependency evaluation and treatment. I have counseled the patient regarding warning signs for need to return to the psychiatric emergency room as part of the general safety plan. The patient is otherwise psychiatrically clear for discharge from the CDU. Case discussed with nurse. Case discussed with PA in the CDU Naldo Medina. Thank you very much for this consultation. Justification for Cont. Inpt. Per primary team Request HC Surrog/Guard Advoc?: No Problem Qualifiers (1) Opiate dependence: Qualified Code: F11.20 - Uncomplicated opioid dependence Jamel Salazar MD Oct 23, 2016 12:40
--- NOTE | 2016-10-23 13:21 | HHI.PR ---
Addendum to Inpatient Note Addendum Reason: Additional Documentation Additional Information Patient was medically clear for discharge this morning. He decided he did not want to go voluntarily to inpatient psychiatry. Psychiatry reevaluated the patient, discussed with Dr. Salazar, the patient psychiatrically cleared for discharge. Discussed with the ED charge nurse and ED case management, patient is not under arrest or any involuntary status. Discharge home this afternoon. D /W Dr. Quigley. Albert Medina Oct 23, 2016 13:21
== END 2016-10-23 14:23 | disposition home or self-care (01) ==
LOC: NEPD 18:44 → NEDA 23:10 → NEPGCP 10-22 01:03
PROVIDERS: ADMIT Hospitalist; ATTEND Hospitalist
DX: R65.10 Systemic inflammatory response syndrome (SIRS) of non-infectious origin without acute organ dysfunction (principal); R00.0 Tachycardia, unspecified; F32.9 Major depressive disorder, single episode, unspecified; R11.0 Nausea; R61 Generalized hyperhidrosis; M54.9 Dorsalgia, unspecified; M79.606 Pain in leg, unspecified; R45.851 Suicidal ideations; D64.9 Anemia, unspecified; J02.9 Acute pharyngitis, unspecified; R51 Headache; R53.81 Other malaise; B19.20 Unspecified viral hepatitis C without hepatic coma; Z76.5 Malingerer [conscious simulation]; Z59.0 Homelessness; F17.200 Nicotine dependence, unspecified, uncomplicated; F11.20 Opioid dependence, uncomplicated; F41.9 Anxiety disorder, unspecified
CPT/HCPCS: 71010; 80048; 80053; 80307; 81001; 83605; 85025; 87040; 87081; 87804; 87880; 96360; 99285; G0378; J2405; J7030; Q0163

== ENCOUNTER 2016-10-28 00:17 | Inpatient (IN) | payer SELFPAY ==
[2016-10-28] VITALS (11 sets, daily range): BP systolic 88–114; BP diastolic 43–64; PULSE 74–128; RESP 14–21; TEMP 97.7–103; O2SAT 97–100
[~2016-10-28] VITALS: Ht 175.3 cm; Wt 68.0 kg
[~2016-10-28 00:17] MED LIST changes: +CEPH-460 PO; +CLIN1CAP5 PO; +DICL75TA PO
[2016-10-28] MEDS ORDERED: ACETAMINOPHEN 325 MG TAB PO ONE (01:30)
[2016-10-28] MEDS ORDERED: SODIUM CHLOR 0.9% 1000 ML INJ 1,000 ML IV ONE ×3 (01:30→03:00)
[2016-10-28 01:52] LABS: HEMATOCRIT 38.9 % (39.0-51.0); MEAN CORPUSCULAR HEMOGLOBIN 30.8 PG (27.0-34.0); MEAN CORPUSCULAR HGB CONC 35.8 % (32.0-36.0); PLATELET COUNT 237 TH/MM3 (150-450); RED BLOOD COUNT 4.53 MIL/MM3 (4.50-5.90); RED CELL DISTRIBUTION WIDTH 13.6 % (11.6-17.2); WHITE BLOOD COUNT 7.4 TH/MM3 (4.0-11.0)
[2016-10-28 01:53] LABS: AUTOMATED NEUTROPHIL # 6.8 TH/MM3 (1.8-7.7); BASOPHIL % 0.2 % (0.0-2.0); EOSINOPHIL % 0.2 % (0.0-4.0); HEMO FLAGS DIFF FINAL; LYMPHOCYTE # 0.5 TH/MM3 (1.0-4.8); MONO % 0.7 % (0.0-8.0); NEUT % 91.9 % (16.0-70.0)
[2016-10-28 02:01] LABS: BLOOD, URINE NEG (NEG); GLUCOSE,URINE NEG (NEG); KETONE, URINE NEG (NEG); MUCUS URINE FEW /lpf (OCC); NITRITE,URINE NEG (NEG); PH, URINE 5.5 (5.0-8.5); URINE COLOR YELLOW (YELLW/STRAW)
--- NOTE | 2016-10-28 02:01 | RADRPT ---
EXAM DATE/TIME: 10/28/2016 01:25 [facility] COMPARISON: CHEST SINGLE AP, October 21, 2016, 21:19. INDICATIONS : Fever. MEDICAL HISTORY : None. SURGICAL HISTORY : None. ENCOUNTER: [facility] ACUITY: 1 week PAIN SCORE: 0/10 LOCATION: Bilateral chest FINDINGS: A single view of the chest demonstrates the lungs to be symmetrically aerated without evidence of mas s, infiltrate or effusion. The cardiomediastinal contours are unremarkable. Osseous structures are intact. CONCLUSION: No acute disease. No significant change has occurred. Sami Watson MD on October 28, 2016 at 1:59 Board Certified Radiologist. This report was verified electronically.
[2016-10-28 02:03] LABS: COMMENT (UR) CATH-CULT NOT IND; CULTURE IF INDICATED CATH CULTURE NOT IND
[2016-10-28 02:07] LABS: APTT (PATIENT) 24.6 SEC (24.3-30.1); PROTHROMBIN TIME - PATIENT 11.1 SEC (9.8-11.6)
[2016-10-28 02:10] LABS: ALT (GPT) 66 U/L (12-78); ANION GAP 9 MEQ/L (5-15); AST (GOT) 21 U/L (15-37); BICARBONATE 26.6 MEQ/L (21.0-32.0); BLOOD UREA NITROGEN 29 MG/DL (7-18); CHLORIDE 97 MEQ/L (98-107); GLOMERULAR FILTRATION RATE 62 ML/MIN (>89); POTASSIUM 3.3 MEQ/L (3.5-5.1); SODIUM (NA) 133 MEQ/L (136-145)
[2016-10-28 02:12] LABS: ALKALINE PHOSPHATASE 86 U/L (45-117); TOTAL BILIRUBIN ADULT 1.1 MG/DL (0.2-1.0)
--- NOTE | 2016-10-28 03:02 | PD ---
HPI Chief Complaint: Fever Time Seen by Provider: 02:54 Travel History International Travel<30 days: No Contact w/Intl Traveler<30days: No Traveled to known affect area: No History of Present Illness HPI Patient is a 26-year-old male who presents to the emergency room with fever. Reports that he is an IVDA, he shot up IV Dilaudid tonight and to his hands. Patient reports that shortly thereafter, he developed a fever. Patient reports that he has been having fevers and chills all night. Patient reports the same thing happen the last time he shot up. Patient denies any cough or congestion, denies any chest pain or shortness of breath. PFSH Past Medical History Anxiety: No Depression: No Heart Rhythm Problems: No Cancer: No Cardiovascular Problems: No High Cholesterol: No Chest Pain: No Congestive Heart Failure: No Diabetes: No Diminished Hearing: No Endocrine: No GERD: Yes Genitourinary: No Hepatitis: Yes (C) Immune Disorder: No Musculoskeletal: No Neurologic: No Psychiatric: Yes (IV drug abuse) Reproductive: No Respiratory: Yes (pneumonia) Immunizations Current: Yes Pneumonia: Yes Thyroid Disease: No ?: Not Past Surgical History Surgical History: No Previous Surgery Social History Alcohol Use: No (NO LONGER DRINKS) Tobacco Use: Yes (1PPD ) Substance Use: Yes (OPIATES LAST USED 10/27/16 @1400) Allergies-Medications (Allergen,Severity, Reaction): Coded Allergies: Sulfa (Verified Allergy, Severe, 10/28/16) Reported Meds & Prescriptions Reported Meds & Active Scripts Active Review of Systems General / Constitutional: Positive: Fever, Chills Eyes: No: Visual changes HENT: No: Headaches Cardiovascular: No: Chest Pain or Discomfort Respiratory: No: Shortness of Breath Gastrointestinal: No: Abdominal Pain Genitourinary: No: Dysuria Musculoskeletal: No: Pain Skin: No Rash Neurologic: No: Weakness Psychiatric: No: Depression Endocrine: No: Polydipsia Hematologic/Lymphatic: No: Easy Bruising Physical Exam Narrative GENERAL: mild distress SKIN: Focused skin assessment warm/dry. HEAD: Atraumatic. Normocephalic. EYES: Pupils equal and round. No scleral icterus. No injection or drainage. ENT: No nasal bleeding or discharge. Mucous membranes pink and moist. NECK: Trachea midline. No JVD. CARDIOVASCULAR: Regular rate and rhythm. No murmur appreciated. RESPIRATORY: No accessory muscle use. Clear to auscultation. Breath sounds equal bilaterally. GASTROINTESTINAL: Abdomen soft, non-tender, nondistended. Hepatic and splenic margins not palpable. MUSCULOSKELETAL: No obvious deformities. No clubbing. No cyanosis. No edema. NEUROLOGICAL: Awake and alert. No obvious cranial nerve deficits. Motor grossly within normal limits. Normal speech. PSYCHIATRIC: Appropriate mood and affect; insight and judgment normal. Data Data Last Documented VS Vital Signs Date Time Temp Pulse Resp B/P Pulse Ox O2 Delivery O2 Flow Rate FiO2 10/28/16 03:07 110 16 101/55 97 Room Air 10/28/16 02:51 101.3 Orders Complete Blood Count With Diff (10/28/16:) Comprehensive Metabolic Panel (10/28/16:) Prothrombin Time / Inr (Pt) (10/28/16:) Act Partial Throm Time (Ptt) (10/28/16:21) Lactic Acid Sepsis Protocol (10/28/16:21) Urinalysis - C+S If Indicated (10/28/16:21) Blood Culture (10/28/16:21) Chest, Single Ap (10/28/16:21) Ecg Monitoring (10/28/16:21) Iv Access Insert/Monitor (10/28/16:) Oximetry (10/28/16:21) Acetaminophen (Tylenol) (10/28/16 01:30) Sodium Chlor 0.9% 1000 Ml Inj (Ns 1000 M (10/28/16 01:30) Sodium Chlor 0.9% 1000 Ml Inj (Ns 1000 M (10/28/16 01:30) Sodium Chlor 0.9% 1000 Ml Inj (Ns 1000 M (10/28/16 03:00) Influenzae A/B Antigen (10/28/16 03:09) Labs Laboratory Tests Test 10/28/16 01:30 White Blood Count 7.4 TH/MM3 Red Blood Count 4.53 MIL/MM3 Hemoglobin 14.0 GM/DL Hematocrit 38.9 % Mean Corpuscular Volume 86.0 FL Mean Corpuscular Hemoglobin 30.8 PG Mean Corpuscular Hemoglobin 35.8 % Concent Red Cell Distribution Width 13.6 % Platelet Count 237 TH/MM3 Mean Platelet Volume 8.2 FL Neutrophils (%) (Auto) 91.9 % Lymphocytes (%) (Auto) 7.0 % Monocytes (%) (Auto) 0.7 % Eosinophils (%) (Auto) 0.2 % Basophils (%) (Auto) 0.2 % Neutrophils # (Auto) 6.8 TH/MM3 Lymphocytes # (Auto) 0.5 TH/MM3 Monocytes # (Auto) 0.1 TH/MM3 Eosinophils # (Auto) 0.0 TH/MM3 Basophils # (Auto) 0.0 TH/MM3 CBC Comment DIFF FINAL Differential Comment Prothrombin Time 11.1 SEC Prothromb Time International 1.0 RATIO Ratio Activated Partial 24.6 SEC Thromboplast Time Urine Color YELLOW Urine Turbidity CLEAR Urine pH 5.5 Urine Specific [place] 1.018 Urine Protein 30 mg/dL Urine Glucose (UA) NEG mg/dL Urine Ketones NEG mg/dL Urine Occult Blood NEG Urine Nitrite NEG Urine Bilirubin NEG Urine Urobilinogen LESS THAN 2.0 MG/DL Urine Leukocyte Esterase NEG Urine RBC 1 /hpf Urine WBC 2 /hpf Urine Mucus FEW /lpf Microscopic Urinalysis Comment CATH-CULT NOT IND Sodium Level 133 MEQ/L Potassium Level 3.3 MEQ/L Chloride Level 97 MEQ/L Carbon Dioxide Level 26.6 MEQ/L Anion Gap 9 MEQ/L Blood Urea Nitrogen 29 MG/DL Creatinine 1.37 MG/DL Estimat Glomerular Filtration 62 ML/MIN Rate Random Glucose 91 MG/DL Lactic Acid Level 1.6 mmol/L Calcium Level 9.2 MG/DL Total Bilirubin 1.1 MG/DL Aspartate Amino Transf 21 U/L (AST/SGOT) Alanine Aminotransferase 66 U/L (ALT/SGPT) Alkaline Phosphatase 86 U/L Total Protein 7.9 GM/DL Albumin 4.0 GM/DL [facility] Medical Decision Making Medical Screen Exam Complete: Yes Emergency Medical Condition: Yes Interpretation(s) Vital Signs Date Time Temp Pulse Resp B/P Pulse Ox O2 Delivery O2 Flow Rate FiO2 10/28/16 02:51 101.3 119 16 91/48 98 Room Air 10/28/16 02:44 16 10/28/16 01:34 16 10/28/16 00:21 103.0 128 20 114/60 98 Room Air Differential Diagnosis Differential includes bacteremia, Endocarditis, influenza, pneumonia Narrative Course 26 year old male who presents to ER with c/o of fever/chills after using IVD today. Vital Signs Date Time Temp Pulse Resp B/P Pulse Ox O2 Delivery O2 Flow Rate FiO2 10/28/16 03:07 110 16 101/55 97 Room Air 10/28/16 02:51 101.3 119 16 91/48 98 Room Air 10/28/16 02:44 16 10/28/16 01:34 16 10/28/16 00:21 103.0 128 20 114/60 98 Room Air Temp 103 upon arrival to ER, HR 128, patient with SIRS criteria. Patient has been pancultured, vanco and zosyn administered. Laboratory Tests Test 10/28/16 01:30 White Blood Count 7.4 TH/MM3 (4.0-11.0) Red Blood Count 4.53 MIL/MM3 (4.50-5.90) Hemoglobin 14.0 GM/DL (13.0-17.0) Hematocrit 38.9 % (39.0-51.0) Mean Corpuscular Volume 86.0 FL (80.0-100.0) Mean Corpuscular Hemoglobin 30.8 PG (27.0-34.0) Mean Corpuscular Hemoglobin 35.8 % Concent (32.0-36.0) Red Cell Distribution Width 13.6 % (11.6-17.2) Platelet Count 237 TH/MM3 (150-450) Mean Platelet Volume 8.2 FL (7.0-11.0) Neutrophils (%) (Auto) 91.9 % (16.0-70.0) Lymphocytes (%) (Auto) 7.0 % (9.0-44.0) Monocytes (%) (Auto) 0.7 % (0.0-8.0) Eosinophils (%) (Auto) 0.2 % (0.0-4.0) Basophils (%) (Auto) 0.2 % (0.0-2.0) Neutrophils # (Auto) 6.8 TH/MM3 (1.8-7.7) Lymphocytes # (Auto) 0.5 TH/MM3 (1.0-4.8) Monocytes # (Auto) 0.1 TH/MM3 (0-0.9) Eosinophils # (Auto) 0.0 TH/MM3 (0-0.4) Basophils # (Auto) 0.0 TH/MM3 (0-0.2) CBC Comment DIFF FINAL Differential Comment Prothrombin Time 11.1 SEC (9.8-11.6) Prothromb Time International 1.0 RATIO Ratio Activated Partial 24.6 SEC Thromboplast Time (24.3-30.1) Urine Color YELLOW (YELLW/STRAW) Urine Turbidity CLEAR (CLEAR) Urine pH 5.5 (5.0-8.5) Urine Specific [place] 1.018 (1.002-1.035) Urine Protein 30 mg/dL (NEG-TRACE) Urine Glucose (UA) NEG mg/dL (NEG) Urine Ketones NEG mg/dL (NEG) Urine Occult Blood NEG (NEG) Urine Nitrite NEG (NEG) Urine Bilirubin NEG (NEG) Urine Urobilinogen LESS THAN 2.0 MG/DL (LESS THAN 2.0) Urine Leukocyte Esterase NEG (NEG) Urine RBC 1 /hpf (0-3) Urine WBC 2 /hpf (0-5) Urine Mucus FEW /lpf (OCC) Microscopic Urinalysis Comment CATH-CULT NOT IND Sodium Level 133 MEQ/L (136-145) Potassium Level 3.3 MEQ/L (3.5-5.1) Chloride Level 97 MEQ/L (98-107) Carbon Dioxide Level 26.6 MEQ/L (21.0-32.0) Anion Gap 9 MEQ/L (5-15) Blood Urea Nitrogen 29 MG/DL (7-18) Creatinine 1.37 MG/DL (0.60-1.30) Estimat Glomerular Filtration 62 ML/MIN (>89) Rate Random Glucose 91 MG/DL (74-106) Lactic Acid Level 1.6 mmol/L (0.4-2.0) Calcium Level 9.2 MG/DL (8.5-10.1) Total Bilirubin 1.1 MG/DL (0.2-1.0) Aspartate Amino Transf 21 U/L (15-37) (AST/SGOT) Alanine Aminotransferase 66 U/L (12-78) (ALT/SGPT) Alkaline Phosphatase 86 U/L (45-117) Total Protein 7.9 GM/DL (6.4-8.2) Albumin 4.0 GM/DL (3.4-5.0) Last Impressions Chest X-Ray 10/28/16 0121 Signed Impressions: Service Date/Time: October 01:25 - CONCLUSION: No acute disease. No significant change has occurred. Sami Watson MD Plan to place in obs for SIRS Case reviewed with dr. lombardo who accepts pt to service Diagnosis Primary Impression: SIRS (systemic inflammatory response syndrome) Admitting Information Admitting Physician Requests: Neetu Thakkar DO Oct 28, 2016 03:02
[2016-10-28] MEDS ORDERED: PIPERACIL-TAZO 3.375 GM PREMIX 50 ML IV ONE (03:15)
[2016-10-28] MEDS ORDERED: NALOXONE HCL 0.4 MG/ML AMP IV PRN (03:15)
[2016-10-28] MEDS ORDERED: SODIUM CHLORIDE 0.9% FLUSH 10 ML FLUSH IV FLUSH PRN (03:15)
[2016-10-28] MEDS ORDERED: VANCOMYCIN INJ 1,000 MG in SODIUM CHLOR 0.9% 250 ML INJ 250 ML IV ONE (03:15)
--- NOTE | 2016-10-28 03:24 | HHI.HP ---
HPI Service [facility] Primary [facility] Physician No Primary Care Physician Admission Diagnosis SIRS Diagnoses: Chief Complaint: fever Travel History International Travel<30 Days: No Contact w/Intl Traveler <30 Da: No Traveled to Known Affected Are: No Sepsis Criteria SIRS Criteria (2 or more): Temp > 100.9 or < 96.8, Heart rate over 90 History of Present Illness Written by CONSTANCE Lucero acting as scribe for [Asuncion] on 10/28/16 at 03: 16. 26 y/o male with a history of IVDA, depression and questionable Hep C presented to the ED with complaints of fever and weakness. 2pm used IV drugs in his right wrist and around 11 pm tonight he developed a fever with nausea, chills, and lightheadedness. He complains he is weak with muscle aches all over. Denies any chest pain, sob, diarrhea, vomiting, dysuria he was at a store and felt so sick and so lightheaded and he told the decorator store to call [phone] Review of Systems Except as stated in HPI: all other systems reviewed are Neg Past Family Social History Past Medical History Depression IVDA Questionable Hep C, 2013 positive, but he states in 2016 he was tested in [facility] and it was negative Past Surgical History Patient denies any surgical history Reported Medications Reported Meds & Active Scripts Active Allergies: Coded Allergies: Sulfa (Verified Allergy, Severe, 10/28/16) Active Ordered Medications Current Medications Medications (Trade) Dose Ordered Sig/Ubaldo Route Start Time Stop Time Status Last Admin Sodium Chloride 1,000 ml @ 999 mls/hr BOLUS ONCE IV 10/28/16 03:00 10/28/16 04:00 10/28/16 03:08 (NS 1000 ml Inj) 1,000 ml @ 100 mls/hr Q10H IV 10/28/16 03:09 UNV (NS Flush) 2 ml UNSCH PRN IV FLUSH 10/28/16 03:15 UNV (NS Flush) 2 ml BID IV FLUSH 10/28/16 09:00 UNV Naloxone HCl 0.4 mg 0.4 mg UNSCH PRN IV 10/28/16 03:15 UNV Vancomycin HCl 1000 mg/Sodium Chloride 260 ml @ 250 mls/hr ONCE ONCE IV 10/28/16 03:15 10/28/16 04:17 (Zosyn 3.375 Gm Premix) 50 ml @ 100 mls/hr ONCE ONCE IV 10/28/16 03:15 10/28/16 03:44 Family History Patient denies any family history, no heart disease or cancer. Social History Tobacco use: 1 PPD Alcohol use: Denies Illicit drug use: Heroin and Dilaudid IV Patient is currently homeless Physical Exam Vital Signs Vital Signs Date Time Temp Pulse Resp B/P Pulse Ox O2 Delivery O2 Flow Rate FiO2 10/28/16 03:07 110 16 101/55 97 Room Air 10/28/16 02:51 101.3 119 16 91/48 98 Room Air 10/28/16 02:44 16 10/28/16 01:34 16 10/28/16 00:21 103.0 128 20 114/60 98 Room Air Physical Exam GENERAL: This is a well-nourished, well-developed patient, in no apparent distress. SKIN: No rashes, ecchymoses or lesions. Cool and dry. HEAD: Atraumatic. Normocephalic. No temporal or scalp tenderness. EYES: Pupils equal round and reactive. Extraocular motions intact. ENT: Nose without bleeding, purulent drainage or septal hematoma. Airway patent. NECK: Trachea midline. No JVD or lymphadenopathy. Supple, nontender, no meningeal signs. CARDIOVASCULAR: Regular rate and rhythm without murmurs, gallops, or rubs. RESPIRATORY: Clear to auscultation. Breath sounds equal bilaterally. No wheezes , rales, or rhonchi. GASTROINTESTINAL: Abdomen soft, non-tender, nondistended. No hepato-splenomegaly , or palpable masses. No guarding. MUSCULOSKELETAL: Extremities without clubbing, cyanosis, or edema. No joint tenderness, effusion, or edema noted. No calf tenderness NEUROLOGICAL: Awake and alert. Motor and sensory grossly within normal limits. Normal speech. Laboratory Laboratory Tests Test 10/28/16 01:30 White Blood Count 7.4 Red Blood Count 4.53 Hemoglobin 14.0 Hematocrit 38.9 Mean Corpuscular Volume 86.0 Mean Corpuscular Hemoglobin 30.8 Mean Corpuscular Hemoglobin 35.8 Concent Red Cell Distribution Width 13.6 Platelet Count 237 Mean Platelet Volume 8.2 Neutrophils (%) (Auto) 91.9 Lymphocytes (%) (Auto) 7.0 Monocytes (%) (Auto) 0.7 Eosinophils (%) (Auto) 0.2 Basophils (%) (Auto) 0.2 Neutrophils # (Auto) 6.8 Lymphocytes # (Auto) 0.5 Monocytes # (Auto) 0.1 Eosinophils # (Auto) 0.0 Basophils # (Auto) 0.0 CBC Comment DIFF FINAL Differential Comment Prothrombin Time 11.1 Prothromb Time International 1.0 Ratio Activated Partial 24.6 Thromboplast Time Urine Color YELLOW Urine Turbidity CLEAR Urine pH 5.5 Urine Specific [place] 1.018 Urine Protein 30 Urine Glucose (UA) NEG Urine Ketones NEG Urine Occult Blood NEG Urine Nitrite NEG Urine Bilirubin NEG Urine Urobilinogen LESS THAN 2.0 Urine Leukocyte Esterase NEG Urine RBC 1 Urine WBC 2 Urine Mucus FEW Microscopic Urinalysis Comment CATH-CULT NOT IND Sodium Level 133 Potassium Level 3.3 Chloride Level 97 Carbon Dioxide Level 26.6 Anion Gap 9 Blood Urea Nitrogen 29 Creatinine 1.37 Estimat Glomerular Filtration 62 Rate Random Glucose 91 Lactic Acid Level 1.6 Calcium Level 9.2 Total Bilirubin 1.1 Aspartate Amino Transf 21 (AST/SGOT) Alanine Aminotransferase 66 (ALT/SGPT) Alkaline Phosphatase 86 Total Protein 7.9 Albumin 4.0 Date/Time Procedure Status Source Growth 10/28/16 01:30 Aerobic Blood Culture Received Blood Peripheral Pending 10/28/16 01:30 Anaerobic Blood Culture Received Blood Peripheral Pending Result Diagram: 10/28/16 0130 10/28/16 0130 Imaging Last Impressions Chest X-Ray 10/28/16 0121 Signed Impressions: Service Date/Time: October 01:25 - CONCLUSION: No acute disease. No significant change has occurred. Sami Watson MD Assessment and Plan Problem List: (1) Fever of unknown origin (FUO) ICD Code: R50.9 Status: Acute (2) SIRS (systemic inflammatory response syndrome) ICD Code: R65.10 Status: Acute Assessment and Plan 26 y/o male with a history of IVDA, depression and questionable Hep C presented to the ED with complaints of fever and weakness. Fever of unknown origin, SIRS criteria T max 103.0, HR 112 Chest x ray reviewed and unremarkable -Blood cultures pending -Flu test ordered -IVF for hydration -IV antibiotics Vancomycin and Zosyn if flu test is negative IVDA, chronic -Encouraged to quit, patient states he will [facility] a [facility] [place] [facility] DVT prophylaxis: SCDs This note was transcribed by scribe [Jennie Monae]. I, Dr. Kadie Roland personally performed the history, physical exam, and medical decision making; and confirmed the accuracy of the information in the transcribed note. Authenticated by Dr. Kadie Roland on 10/28/16 at 03:16. Discussed Condition With Patient, RN and ED physician Jennie Monae Oct 28, 2016 03:24 Kadie Roland MD Oct 28, 2016 06:11
[2016-10-28] MEDS: SODIUM CHLOR 0.9% 1000 ML INJ 1,000 ML IV SCH ×3 (04:29→22:13)
[2016-10-28] MEDS ORDERED: Vancomycin Consult Pharmacy 1 EA OTHER SCH (06:15)
[2016-10-28] MEDS ORDERED: ONDANSETRON HCL 4 MG/2 ML VIAL IV PUSH PRN (07:45)
[2016-10-28] MEDS: SODIUM CHLORIDE 0.9% FLUSH 10 ML FLUSH IV FLUSH SCH ×2 (08:10→21:00)
[2016-10-28] MEDS ORDERED: POTASSIUM CHLORIDE 20 MEQ CONTROLLED RELEASE TAB PO ONE ×2 (08:15→12:00)
[2016-10-28] MEDS: PIPERACIL-TAZO 4.5 GM PREMIX 100 ML IV SCH ×3 (09:19→22:13)
[2016-10-28] MEDS ORDERED: MAGNESIUM SULFATE 1 GM PREMIX 100 ML IV ONE (15:30)
[2016-10-28] MEDS: VANCOMYCIN 1,000 MG/NS 250 ML IV SCH ×2 (16:04)
--- NOTE | 2016-10-28 18:06 | ECHRPT ---
Indication: CONCLUSIONS The left ventricular systolic function is normal with an estimated ejection fraction in the range of 55-60%. Mobile echodensity is noted on the mitral valve in the short axis on the anterior leaflet, most like ly vegetation. Trace mitral valve regurgitation. Mobile echodensity on the anterior leaflet of the tricuspid valve, most likely vegetation. There is trace tricuspid valve regurgitation. BP: / HR: Rhythm: MEASUREMENTS (Male / Female) Normal Values Technical Quality: 2D ECHO LV Diastolic Diameter PLAX 5.2 cm 4.2 - 5.9 / 3.9 - 5.3 cm LV Systolic Diameter PLAX 3.6 cm IVS Diastolic Thickness 0.9 cm 0.6 - 1.0 / 0.6 - 0.9 cm LVPW Diastolic Thickness 0.8 cm 0.6 - 1.0 / 0.6 - 0.9 cm LV Relative Wall Thickness 0.3 RV Internal Dim ED PLAX 2.9 cm M-MODE Aortic Root Diameter MM 2.5 cm LA Systolic Diameter MM 3.9 cm LA Ao Ratio MM 1.6 AV Cusp Separation MM 2.1 cm DOPPLER Mitral E Point Velocity 83.9 cm/s Mitral A Point Velocity 59.2 cm/s Mitral E to A Ratio 1.4 LV E' Lateral Velocity 9.8 cm/s Mitral E to LV E' Lateral Ratio 8.5 LV E' Septal Velocity 9.1 cm/s Mitral E to LV E' Septal Ratio 9.3 TR Peak Velocity 336.0 cm/s TR Peak Gradient 45.2 mmHg FINDINGS LEFT VENTRICLE Normal left ventricular size. The left ventricular systolic function is normal with an estimated ejection fraction in the range of 55-60%. No regional wall motion abnormalities are present. RIGHT VENTRICLE Normal right ventricular size and systolic function. LEFT ATRIUM The left atrial size is normal. RIGHT ATRIUM The right atrial size is normal. ATRIAL SEPTUM The interatrial septum not well visualized. AORTA The aortic root and proximal ascending aorta are not well visualized. MITRAL VALVE Structurally normal mitral valve. Trace mitral valve regurgitation. Mobile echodensity is noted on the mitral valve in the short axis on the anterior leaflet, most like ly vegetation. AORTIC VALVE Trileaflet aortic valve. No aortic valve stenosis or regurgitation. TRICUSPID VALVE Structurally normal tricuspid valve. There is trace tricuspid valve regurgitation. Mobile echodensity on the anterior leaflet of the tricuspid valve, most likely vegetation. PULMONARY VALVE The pulmonary valve is not well visualized. No pulmonary valve regurgitation. PERICARDIUM No pericardial effusion. Real Archibald DO (Electronically Signed) Final Date:28 October 2016 18:05
[2016-10-29 03:49] VITALS: BP 97/55; PULSE 77; RESP 21; TEMP 98.4; O2SAT 100
[2016-10-29] MEDS: PIPERACIL-TAZO 4.5 GM PREMIX 100 ML IV SCH ×3 (03:56→14:24)
[2016-10-29] MEDS: VANCOMYCIN 1,000 MG/NS 250 ML IV SCH ×2 (04:56)
[2016-10-29 06:44] LABS: BASOPHIL % 0.5 % (0.0-2.0); EOSINOPHIL # 0.1 TH/MM3 (0-0.4); EOSINOPHIL % 1.6 % (0.0-4.0); HEMATOCRIT 32.8 % (39.0-51.0); HEMO FLAGS DIFF FINAL; LYMPH % 24.7 % (9.0-44.0); MEAN CELL VOLUME 88.1 FL (80.0-100.0); MEAN CORPUSCULAR HEMOGLOBIN 30.5 PG (27.0-34.0); MEAN CORPUSCULAR HGB CONC 34.6 % (32.0-36.0); MONO % 10.4 % (0.0-8.0); NEUT % 62.8 % (16.0-70.0); PLATELET COUNT 167 TH/MM3 (150-450); RED BLOOD COUNT 3.73 MIL/MM3 (4.50-5.90); RED CELL DISTRIBUTION WIDTH 13.6 % (11.6-17.2)
[2016-10-29 07:06] LABS: BICARBONATE 26.2 MEQ/L (21.0-32.0)
[2016-10-29 07:24] VITALS: BP 117/67; PULSE 77; RESP 14; TEMP 98; O2SAT 99
[2016-10-29] MEDS: SODIUM CHLORIDE 0.9% FLUSH 10 ML FLUSH IV FLUSH SCH (07:31)
[2016-10-29] MEDS: SODIUM CHLOR 0.9% 1000 ML INJ 1,000 ML IV SCH ×2 (07:31→12:17)
[2016-10-29 08:00] VITALS: PULSE 73
--- NOTE | 2016-10-29 10:59 | HHI.PR ---
Subjective Remarks Follow up for fever, suspected endocarditis. The patient reports feeling better today. No fevers overnight. Denies any chest pain, palpitations, shortness of breath, orthopnea, or dyspnea on exertion. Discussed results of echocardiogram showing vegetation at mitral and tricuspid valve. Patient denies any prior diagnosis of endocarditis. He has been using IV drugs intermittently over the past 8 years. He states he only injects dilaudid, denies any other drug use. Patient agrees to testing for HIV/hepatitis. Objective Vitals Vital Signs Date Time Temp Pulse Resp B/P Pulse Ox O2 Delivery O2 Flow Rate FiO2 10/29/16 08:00 73 10/29/16 07:24 98.0 77 14 117/67 99 10/29/16 03:49 98.4 77 21 97/55 100 10/28/16 23:59 98.8 74 18 106/64 97 10/28/16 19:28 97.8 90 21 97/55 100 10/28/16 15:52 97.7 85 16 105/56 100 10/28/16 11:26 98.1 91 14 88/43 99 I/O 10/28/16 10/28/16 10/28/16 10/29/16 10/29/16 10/29/16 06:59 14:59 22:59 06:59 14:59 22:59 Intake Total 1094 ml 480 ml Balance 1094 ml 480 ml Intake Oral 480 ml IV Total 1094 ml Result Diagram: 10/29/16 0547 10/29/16 0547 Other Results Laboratory Tests Test 10/28/16 10/29/16 10/29/16 01:30 05:47 11:38 Prothrombin Time 11.1 SEC Prothromb Time International 1.0 RATIO Ratio Activated Partial 24.6 SEC Thromboplast Time Urine Color YELLOW Urine Turbidity CLEAR Urine pH 5.5 Urine Specific Rush 1.018 Urine Protein 30 mg/dL Urine Glucose (UA) NEG mg/dL Urine Ketones NEG mg/dL Urine Occult Blood NEG Urine Nitrite NEG Urine Bilirubin NEG Urine Urobilinogen LESS THAN 2.0 MG/DL Urine Leukocyte Esterase NEG Urine RBC 1 /hpf Urine WBC 2 /hpf Urine Mucus FEW /lpf Microscopic Urinalysis Comment CATH-CULT NOT IND Lactic Acid Level 1.6 mmol/L Magnesium Level 1.7 MG/DL Total Bilirubin 1.1 MG/DL Aspartate Amino Transf 21 U/L (AST/SGOT) Alanine Aminotransferase 66 U/L (ALT/SGPT) Alkaline Phosphatase 86 U/L Total Protein 7.9 GM/DL Albumin 4.0 GM/DL White Blood Count 8.0 TH/MM3 Red Blood Count 3.73 MIL/MM3 Hemoglobin 11.4 GM/DL Hematocrit 32.8 % Mean Corpuscular Volume 88.1 FL Mean Corpuscular Hemoglobin 30.5 PG Mean Corpuscular Hemoglobin 34.6 % Concent Red Cell Distribution Width 13.6 % Platelet Count 167 TH/MM3 Mean Platelet Volume 9.1 FL Neutrophils (%) (Auto) 62.8 % Lymphocytes (%) (Auto) 24.7 % Monocytes (%) (Auto) 10.4 % Eosinophils (%) (Auto) 1.6 % Basophils (%) (Auto) 0.5 % Neutrophils # (Auto) 5.0 TH/MM3 Lymphocytes # (Auto) 2.0 TH/MM3 Monocytes # (Auto) 0.8 TH/MM3 Eosinophils # (Auto) 0.1 TH/MM3 Basophils # (Auto) 0.0 TH/MM3 CBC Comment DIFF FINAL Differential Comment Sodium Level 141 MEQ/L Potassium Level 4.0 MEQ/L Chloride Level 109 MEQ/L Carbon Dioxide Level 26.2 MEQ/L Anion Gap 6 MEQ/L Blood Urea Nitrogen 18 MG/DL Creatinine 0.99 MG/DL Estimat Glomerular Filtration 91 ML/MIN Rate Random Glucose 95 MG/DL Calcium Level 8.5 MG/DL HIV (1&2) Antibody NEGATIVE Imaging Last Impressions Chest X-Ray 10/28/16 0121 Signed Impressions: Service Date/Time: October 01:25 - CONCLUSION: No acute disease. No significant change has occurred. Sami Watson MD Objective Remarks GENERAL: Well-nourished, well-developed young male patient in [facility]. SKIN: Warm and dry. No rash. HEENT: Normocephalic. Atraumatic. Pupils equal and round. Mucous membranes pink and moist. NECK: Supple. Trachea midline. CARDIOVASCULAR: Regular rate and rhythm. S1, S2 noted. No murmur appreciated. RESPIRATORY: No accessory muscle use. Clear to auscultation. Breath sounds equal bilaterally. GASTROINTESTINAL: Abdomen soft, non-tender, nondistended. Normoactive bowel sounds x4. MUSCULOSKELETAL: No obvious deformities. Extremities without clubbing, cyanosis , or edema. NEUROLOGICAL: Awake and alert. No obvious cranial nerve deficits. Motor grossly within normal limits. Normal speech. PSYCHIATRIC: Appropriate mood and affect; insight and judgment normal. Procedures None Medications and IVs Current Medications Medications (Trade) Dose Ordered Sig/Ubaldo Route Start Time Stop Time Status Last Admin (NS 1000 ml Inj) 1,000 ml @ 125 mls/hr Q8H IV 10/28/16 03:09 10/29/16 07:31 (NS Flush) 2 ml UNSCH PRN IV FLUSH 10/28/16 03:15 (NS Flush) 2 ml BID IV FLUSH 10/28/16 09:00 Naloxone HCl 0.4 mg 0.4 mg UNSCH PRN IV 10/28/16 03:15 Pharmacy Profile Note 0 ml @ 0 mls/hr UNSCH OTHER 10/28/16 06:15 (Zosyn 4.5 Gm Premix) 100 ml @ 200 mls/hr Q6H IV 10/28/16 09:00 10/29/16 07:31 Ondansetron HCl 4 mg 4 mg Q6HR PRN IV PUSH 10/28/16 07:45 (Vancomycin Inj/ NS 250 ml Inj) 250 ml @ 250 mls/hr Q12H IV 10/28/16 16:00 10/29/16 04:56 Miscellaneous Information SPECIFIC LAB TO BE DRAWN:VANCOMY... ONCE ONCE .XX 10/29/16 15:45 10/29/16 15:46 Urinary Catheter: No Vascular Central Line Catheter: No A/P Problem List: (1) Fever of unknown origin (FUO) ICD Code: R50.9 Status: Acute (2) SIRS (systemic inflammatory response syndrome) ICD Code: R65.10 Status: Acute Assessment and Plan 26-year-old male with history of IVDA, depression and questionable Hepatitis C presented to the ED with complaints of fever and weakness. Sepsis with Suspected Endocarditis: Presented with Tmax 103.0, tachycardia HR 112, and suspected source endocarditis. CXR reviewed and unremarkable. Flu negative. UA unremarkable. -Transthoracic Echocardiogram 10/28 shows mobile echodensities at mitral and tricuspid valve, likely vegetation; EF 55-60%. -Blood cultures pending -Give IVF for hydration -Continue IV antibiotics with Vancomycin and Zosyn -Consult Infectious Disease IVDA: chronic. Patient has been using IV drugs intermittently [id number], drug of choice is dilaudid. -Encouraged to quit -patient states he will be in a 20 day [place] [facility] [facility] program DVT prophylaxis: SCDs Discharge Planning Admit to inpatient with sepsis and suspected endocarditis. 1450hrs: Rosie RN and Titus RN have advised me patient has signed himself out AGAINST MEDICAL ADVICE. He was already told the risk of leaving the hospital and suspected diagnosis of endocarditis that can lead to if untreated. He was told multiple times that infectious disease physician will be seeing him and will likely need nursing home IV antibiotics if diagnosis of endocarditis confirmed. In the presence of his mother, the patient still proceeded to sign himself out. He is AAOx4 and has the ability to make his own medical decisions. Patient David Brown has decided to leave the hospital against medical advice. This patient has the capacity to refuse care and understands the risks of leaving, including permanent disability and/or , and has had an opportunity to ask questions about his condition. The patient has been informed that he may return for care at any time, and follow up has been advised. Attending Statement The patient decided to sign Against Medical Advise. discussed with patient and PA. Patient was notified by PA about the risks of signing Renetta Ellison PA-C Oct 29, 2016 10:58 Derrek Upton MD Oct 29, 2016 16:58
[2016-10-29 11:05] VITALS: BP 118/66; PULSE 72; RESP 14; TEMP 98; O2SAT 98
[2016-10-29] MEDS ORDERED: LORazepam 0.5 MG TAB PO PRN (13:45)
[2016-10-29] MEDS ORDERED: NICOTINE 21 MG/24 HR PATCH T-DERMAL SCH (13:45)
[2016-10-29] MEDS ORDERED: REMOVE OLD NICOTINE PATCH T-DERMAL SCH (13:45)
[2016-10-29] MEDS ORDERED: PHARMACY ORDERED LAB ONE (15:45)
== END 2016-10-29 15:26 | disposition left against medical advice (07) | DRG 872 ==
LOC: NEPC 00:17 → NEDA 03:11 → NEPFCDU 03:54 → OBSVTOIN 10-29 07:17
PROVIDERS: ADMIT Internal Medicine; ATTEND Internal Medicine
DX: A41.9 Sepsis, unspecified organism (principal); I38 Endocarditis, valve unspecified; F32.9 Major depressive disorder, single episode, unspecified; K21.9 Gastro-esophageal reflux disease without esophagitis; F17.210 Nicotine dependence, cigarettes, uncomplicated; Z59.0 Homelessness
CPT/HCPCS: 71010; 80048; 80053; 80074; 81001; 83605; 83735; 85025; 85610; 85730; 86592; 86703; 87040; 87804; 93306; 96360; G0378; J2543; J3370; J3475; J7030; J7050

== ENCOUNTER 2016-10-30 18:49 | Inpatient (IN) | payer SELFPAY ==
[~2016-10-30] VITALS: Ht 175.3 cm; Wt 72.4 kg
[2016-10-30 18:53] VITALS: BP 126/82; PULSE 78; RESP 16; TEMP 98.2; O2SAT 99
[2016-10-30] MEDS ORDERED: PIPERACIL-TAZO 4.5 GM PREMIX 100 ML IV ONE (19:15)
[2016-10-30] MEDS ORDERED: VANCOMYCIN INJ 1,000 MG in SODIUM CHLOR 0.9% 250 ML INJ 250 ML IV ONE (19:15)
[2016-10-30] MEDS ORDERED: SODIUM CHLOR 0.9% 1000 ML INJ 1,000 ML IV ONE ×2 (19:15→21:00)
--- NOTE | 2016-10-30 19:24 | PD ---
HPI Chief Complaint: Medical Clearance Time Seen by Provider: 19:20 Travel History International Travel<30 days: No Contact w/Intl Traveler<30days: No Traveled to known affect area: No History of Present Illness HPI 26-year-old male presents to the emergency department for suspected endocarditis. The patient actually left AGAINST MEDICAL ADVICE yesterday. He had in echocardiogram on October 28, 2016 shows mobile echodensities at the mitral just cuspid valve, likely vegetation, ejection fraction 55-60%. Patient was found to be septic with suspected endocarditis. The patient signed out AGAINST MEDICAL ADVICE when he was told that he would need IV antibiotics and admission. The patient states that he has been using illicit drugs for the past 8 years, injecting IV Dilaudid for the past 6 years. He last used IV Dilaudid this morning. Patient states that he has some mild midsternal chest pain, believes it might be in his mind because he was told he had endocarditis. He denies any current fevers or chills. He does report being anxious. PFSH Past Medical History Blood Disorders: No Anxiety: No Depression: No Heart Rhythm Problems: No Cancer: No Cardiovascular Problems: Yes High Cholesterol: No Chest Pain: No Congestive Heart Failure: No Diabetes: No Diminished Hearing: No Endocrine: No GERD: Yes Genitourinary: No Hepatitis: Yes (C) Immune Disorder: No Musculoskeletal: No Neurologic: No Psychiatric: No Reproductive: No Respiratory: No Immunizations Current: Yes Pneumonia: Yes Thyroid Disease: No Social History Alcohol Use: No (NO LONGER DRINKS) Tobacco Use: Yes (1PPD ) Substance Use: Yes (OPIATES LAST USED 10/30/2016) Allergies-Medications (Allergen,Severity, Reaction): Coded Allergies: Sulfa (Verified Allergy, Severe, 10/30/16) Reported Meds & Prescriptions Reported Meds & Active Scripts Active Review of Systems Except as stated in HPI: all other systems reviewed are Neg Physical Exam Narrative GENERAL: Well-nourished, well-developed male patient, ambulatory. Afebrile. SKIN: Focused skin assessment warm/dry. HEAD: Normocephalic. Atraumatic. EYES: No scleral icterus. No injection or drainage. NECK: Supple, trachea midline. No JVD or lymphadenopathy. CARDIOVASCULAR: Regular rate and rhythm without murmurs, gallops, or rubs. RESPIRATORY: Breath sounds equal bilaterally. No accessory muscle use. Lungs sounds are clear to auscultation. GASTROINTESTINAL: Abdomen soft, non-tender, nondistended. MUSCULOSKELETAL: No cyanosis, or edema. BACK: Nontender without obvious deformity. No CVA tenderness. Data Data Last Documented VS Vital Signs Date Time Temp Pulse Resp B/P Pulse Ox O2 Delivery O2 Flow Rate FiO2 10/30/16 18:53 98.2 78 16 126/82 99 Orders Iv Access Insert/Monitor (10/30/16 19:15) Complete Blood Count With Diff (10/30/16 19:15) Comprehensive Metabolic Panel (10/30/16 19:15) Electrocardiogram (10/30/16 ) Sodium Chlor 0.9% 1000 Ml Inj (Ns 1000 M (10/30/16 19:15) Vancomycin Inj (Vancomycin Inj) (10/30/16 19:15) Piperacil-Tazo 4.5 Gm Premix (Zosyn 4.5 (10/30/16 19:15) Admit Order (Ed Use Only) (10/30/16 20:55) Labs Laboratory Tests Test 10/30/16 19:30 White Blood Count 7.2 TH/MM3 Red Blood Count 3.98 MIL/MM3 Hemoglobin 11.8 GM/DL Hematocrit 34.9 % Mean Corpuscular Volume 87.6 FL Mean Corpuscular Hemoglobin 29.7 PG Mean Corpuscular Hemoglobin 33.8 % Concent Red Cell Distribution Width 14.0 % Platelet Count 232 TH/MM3 Mean Platelet Volume 8.1 FL Neutrophils (%) (Auto) 59.8 % Lymphocytes (%) (Auto) 30.8 % Monocytes (%) (Auto) 7.8 % Eosinophils (%) (Auto) 0.8 % Basophils (%) (Auto) 0.8 % Neutrophils # (Auto) 4.3 TH/MM3 Lymphocytes # (Auto) 2.2 TH/MM3 Monocytes # (Auto) 0.6 TH/MM3 Eosinophils # (Auto) 0.1 TH/MM3 Basophils # (Auto) 0.1 TH/MM3 CBC Comment DIFF FINAL Differential Comment Sodium Level 138 MEQ/L Potassium Level 3.5 MEQ/L Chloride Level 104 MEQ/L Carbon Dioxide Level 29.2 MEQ/L Anion Gap 5 MEQ/L Blood Urea Nitrogen 17 MG/DL Creatinine 0.98 MG/DL Estimat Glomerular Filtration 92 ML/MIN Rate Random Glucose 125 MG/DL Calcium Level 9.1 MG/DL Total Bilirubin 0.3 MG/DL Aspartate Amino Transf 15 U/L (AST/SGOT) Alanine Aminotransferase 42 U/L (ALT/SGPT) Alkaline Phosphatase 72 U/L Total Protein 6.9 GM/DL Albumin 3.5 GM/DL [facility] Medical Decision Making Medical Screen Exam Complete: Yes Emergency Medical Condition: Yes Medical Record Reviewed: Yes Differential Diagnosis Endocarditis versus sepsis versus SIRS versus IV drug use Narrative Course 26-year-old male presents to the emergency department after he left AGAINST MEDICAL ADVICE yesterday after being told he had suspected endocarditis. Patient is afebrile at this time. EKG, CBC, CMP are ordered and pending. Patient is given normal saline 1 L IV bolus, vancomycin 1 g IV, Zosyn 4.5 g IV. EKG shows sinus rhythm, heart rate 65, no acute ST changes. CBC shows no acute abnormality. CMP is unremarkable. Dr. Muñoz accepted admission. Diagnosis Primary Impression: Endocarditis Qualified Code: I33.0 - Infective endocarditis, due to unspecified organism, unspecified chronicity Additional Impression: IV drug abuse Admitting Information Admitting Physician Requests: Admit Eli Nolan Oct 30, 2016 19:24
[2016-10-30 20:12] LABS: AUTOMATED NEUTROPHIL # 4.3 TH/MM3 (1.8-7.7); BASOPHIL # 0.1 TH/MM3 (0-0.2); BASOPHIL % 0.8 % (0.0-2.0); EOSINOPHIL # 0.1 TH/MM3 (0-0.4); EOSINOPHIL % 0.8 % (0.0-4.0); HEMATOCRIT 34.9 % (39.0-51.0); HEMO FLAGS DIFF FINAL; LYMPH % 30.8 % (9.0-44.0); LYMPHOCYTE # 2.2 TH/MM3 (1.0-4.8); MEAN CELL VOLUME 87.6 FL (80.0-100.0); MEAN CORPUSCULAR HEMOGLOBIN 29.7 PG (27.0-34.0); MEAN CORPUSCULAR HGB CONC 33.8 % (32.0-36.0); MONO % 7.8 % (0.0-8.0); NEUT % 59.8 % (16.0-70.0); PLATELET COUNT 232 TH/MM3 (150-450); RED BLOOD COUNT 3.98 MIL/MM3 (4.50-5.90); WHITE BLOOD COUNT 7.2 TH/MM3 (4.0-11.0)
[2016-10-30 20:28] LABS: ANION GAP 5 MEQ/L (5-15); AST (GOT) 15 U/L (15-37); BICARBONATE 29.2 MEQ/L (21.0-32.0); BLOOD UREA NITROGEN 17 MG/DL (7-18); CHLORIDE 104 MEQ/L (98-107); GLOMERULAR FILTRATION RATE 92 ML/MIN (>89); POTASSIUM 3.5 MEQ/L (3.5-5.1); SODIUM (NA) 138 MEQ/L (136-145)
[2016-10-30 20:33] LABS: ALKALINE PHOSPHATASE 72 U/L (45-117); ALT (GPT) 42 U/L (12-78); TOTAL BILIRUBIN ADULT 0.3 MG/DL (0.2-1.0)
[2016-10-30] MEDS ORDERED: ACETAMINOPHEN 325 MG TAB PO PRN (21:00)
[2016-10-30] MEDS ORDERED: SENNOSIDES 8.6 MG TAB PO PRN (21:00)
[2016-10-30] MEDS ORDERED: ONDANSETRON HCL 4 MG/2 ML VIAL IVP PRN (21:00)
[2016-10-30] MEDS ORDERED: LACTULOSE SYRUP 20 GM/30 ML CUP PO PRN (21:00)
[2016-10-30] MEDS ORDERED: MAGNESIUM HYDROXIDE SUSP 30 ML CUP PO PRN (21:00)
[2016-10-30] MEDS ORDERED: Vancomycin Consult Pharmacy 1 EA OTHER SCH (21:00)
[2016-10-30] MEDS: DOCUSATE SODIUM 50 MG/SENNA 8.6 MG TAB PO SCH (21:00)
[2016-10-30] MEDS ORDERED: BISACODYL 10 MG SUPP RECTAL PRN (21:00)
[2016-10-30] MEDS ORDERED: SODIUM CHLORIDE 0.9% FLUSH 10 ML FLUSH IV FLUSH PRN (21:00)
--- NOTE | 2016-10-30 21:04 | HHI.HP ---
HPI Service [facility] Primary Care Physician No Primary Care Physician Admission Diagnosis endocarditis, IVDU Diagnoses: (1) Endocarditis Diagnosis: Principal (2) Non-compliance Diagnosis: Principal (3) IVDU (intravenous drug user) Diagnosis: Principal (4) Tobacco abuse Diagnosis: Principal Travel History International Travel<30 Days: No Contact w/Intl Traveler <30 Da: No Traveled to Known Affected Are: No History of Present Illness This is a 26-year-old male with a PMH of Hepatitis C, Tobacco Abuse and IVDU w/ Dilaudid who presented to the ER w/ complaints of chest pain and fever. Recent admit 10/28/16 for similar, Echo w/ vegetation anterior leaf of tricuspid valve, was started on IV Abx and was to have eval by ID, however pt Left AMA. Returns now for re-admission. Blood Cult 10/21 negative. Repeat Blood Cultures obtained tonight. S/p Vanc/Zosyn in ER. BP 170/67, HR 77, O2 sat 99% on RA, Afebrile. CBC unremarkable. Chemistry essentially unremarkable. Review of Systems Except as stated in HPI: all other systems reviewed are Neg ROS: 14 point review of systems otherwise negative. Past Family Social History Past Medical History PMH: Hepatitis C, Tobacco Abuse and IVDU w/ Dilaudid Past Surgical History PAST SURGICAL HISTORY: None Allergies: Coded Allergies: Sulfa (Verified Allergy, Severe, 10/30/16) Family History PAST FAMILY HISTORY: Reviewed. No h/o DM or CAD Social History PAST SOCIAL HISTORY: History of alcohol, quit. Smokes 1ppd. IVDU +Dilaudid. Physical Exam Vital Signs Vital Signs Date Time Temp Pulse Resp B/P Pulse Ox O2 Delivery O2 Flow Rate FiO2 10/30/16 18:53 98.2 78 16 126/82 99 Physical Exam PE: GENERAL: Young male in no acute distress. HEENT: PERRLA, EOMI. No scleral icterus or conjunctival pallor. No lid lag or facial droop. CARDIOVASCULAR: Regular rate and rhythm. No obvious murmurs to auscultation. No chest tenderness to palpation. RESPIRATORY: No obvious rhonchi or wheezing. Clear to auscultation. Breath sounds equal bilaterally. GASTROINTESTINAL: Abdomen soft, non-tender, nondistended. BS normal. MUSCULOSKELETAL: Extremities without clubbing, cyanosis, or edema. No obvious deformities. NEUROLOGICAL: Awake, alert and oriented x4. No focal neurologic deficits. Moving both upper and lower extremities spontaneously. Laboratory Laboratory Tests Test 10/30/16 19:30 White Blood Count 7.2 Red Blood Count 3.98 Hemoglobin 11.8 Hematocrit 34.9 Mean Corpuscular Volume 87.6 Mean Corpuscular Hemoglobin 29.7 Mean Corpuscular Hemoglobin 33.8 Concent Red Cell Distribution Width 14.0 Platelet Count 232 Mean Platelet Volume 8.1 Neutrophils (%) (Auto) 59.8 Lymphocytes (%) (Auto) 30.8 Monocytes (%) (Auto) 7.8 Eosinophils (%) (Auto) 0.8 Basophils (%) (Auto) 0.8 Neutrophils # (Auto) 4.3 Lymphocytes # (Auto) 2.2 Monocytes # (Auto) 0.6 Eosinophils # (Auto) 0.1 Basophils # (Auto) 0.1 CBC Comment DIFF FINAL Differential Comment Sodium Level 138 Potassium Level 3.5 Chloride Level 104 Carbon Dioxide Level 29.2 Anion Gap 5 Blood Urea Nitrogen 17 Creatinine 0.98 Estimat Glomerular Filtration 92 Rate Random Glucose 125 Calcium Level 9.1 Total Bilirubin 0.3 Aspartate Amino Transf 15 (AST/SGOT) Alanine Aminotransferase 42 (ALT/SGPT) Alkaline Phosphatase 72 Total Protein 6.9 Albumin 3.5 Result Diagram: 10/30/16192910/30/161929 Assessment and Plan Problem List: (1) Endocarditis ICD Code: I38 Status: Acute (2) IVDU (intravenous drug user) ICD Code: F19.90 Status: Acute (3) Non-compliance ICD Code: Z91.19 Status: Acute (4) Tobacco abuse ICD Code: Z72.0 Status: Acute Assessment and Plan A/P: 1. Endocarditis: +IVDU, recent admit 10/28/16 w/ Temp 101.3, Echo 10/28/16 w/ tricuspid vegetation, s/p IV Abx, w/ pending eval by ID for likely long-term antibiotics, however pt LEFT AMA. Returns now for re-admission. Blood Cultures 10/21 and 10/28/16 negative. S/p Vanc/Zosyn, follow up cultures, continue IV Abx, Consult ID for likely long-term antibiotics. 2. Non-Compliance: LEFT AMA on previous admit, stressed importance of staying for full assessment/treatment. 3. IVDU: w/ Dilaudid, ongoing. Ativan prn. 4. Tobacco Abuse: Counselled. Ativan/NicoDerm prn if needed. 5. DVT Prophylaxis: SCD/Teds. 6. Social work for d/c planning as needed. 7. Case discussed w/ ER physician at length. Physician Certification 2 Midnight Certification Type: Admission for Inpatient Services Order for Inpatient Services The services are ordered in accordance with Medicare regulations or non- Medicare payer requirements, as applicable. In the case of services not specified as inpatient-only, they are appropriately provided as inpatient services in accordance with the 2-midnight benchmark. Estimated LOS (days): 2 days is the estimated time the patient will need to remain in the hospital, assuming treatment plan goals are met and no additional complications. Post-Hospital Plan: Not yet determined Problem Qualifiers (1) Endocarditis: Qualified Code: I33.0 - Infective endocarditis, due to unspecified organism, unspecified chronicity Yaz Muñoz MD Oct 30, 2016 21:04
[2016-10-30 21:12] VITALS: BP 105/72; PULSE 65; RESP 16; TEMP 97.8; O2SAT 100
[2016-10-30] MEDS: SODIUM CHLORIDE 0.9% FLUSH 10 ML FLUSH IV FLUSH SCH (22:04)
[2016-10-31] VITALS (7 sets, daily range): BP systolic 104–116; BP diastolic 56–75; PULSE 61–78; RESP 17–24; TEMP 97.8–98.8; O2SAT 98–99
[2016-10-31] MEDS ORDERED: PIPERACIL-TAZO 4.5 GM PREMIX 100 ML IV SCH (01:00)
[2016-10-31] MEDS: PIPERACIL-TAZO 4.5 GM PREMIX 100 ML IV SCH ×2 (02:15→08:37)
[2016-10-31] MEDS: LORazepam 2 MG/ML VIAL IV PUSH PRN ×4 (04:17→20:31)
[2016-10-31] MEDS ORDERED: VANCOMYCIN 1,500 MG/NS 500 ML IV ONE ×2 (05:00)
[2016-10-31 08:04] LABS: AUTOMATED NEUTROPHIL # 3.9 TH/MM3 (1.8-7.7); BASOPHIL # 0.1 TH/MM3 (0-0.2); BASOPHIL % 0.8 % (0.0-2.0); EOSINOPHIL # 0.1 TH/MM3 (0-0.4); EOSINOPHIL % 1.8 % (0.0-4.0); HEMATOCRIT 33.3 % (39.0-51.0); HEMO FLAGS DIFF FINAL; LYMPH % 29.8 % (9.0-44.0); MEAN CELL VOLUME 87.2 FL (80.0-100.0); MEAN CORPUSCULAR HEMOGLOBIN 30.1 PG (27.0-34.0); MEAN CORPUSCULAR HGB CONC 34.6 % (32.0-36.0); MONO % 8.5 % (0.0-8.0); NEUT % 59.1 % (16.0-70.0); PLATELET COUNT 210 TH/MM3 (150-450); RED BLOOD COUNT 3.83 MIL/MM3 (4.50-5.90); RED CELL DISTRIBUTION WIDTH 13.8 % (11.6-17.2); WHITE BLOOD COUNT 6.6 TH/MM3 (4.0-11.0)
[2016-10-31 08:27] LABS: ANION GAP 8 MEQ/L (5-15); AST (GOT) 11 U/L (15-37); BICARBONATE 25.9 MEQ/L (21.0-32.0); BLOOD UREA NITROGEN 11 MG/DL (7-18); CHLORIDE 109 MEQ/L (98-107); GLOMERULAR FILTRATION RATE 99 ML/MIN (>89); POTASSIUM 3.7 MEQ/L (3.5-5.1); SODIUM (NA) 143 MEQ/L (136-145)
[2016-10-31 08:32] LABS: ALKALINE PHOSPHATASE 63 U/L (45-117); ALT (GPT) 33 U/L (12-78); TOTAL BILIRUBIN ADULT 0.4 MG/DL (0.2-1.0)
[2016-10-31] MEDS: DOCUSATE SODIUM 50 MG/SENNA 8.6 MG TAB PO SCH ×2 (08:38→20:35)
[2016-10-31] MEDS: SODIUM CHLORIDE 0.9% FLUSH 10 ML FLUSH IV FLUSH SCH ×2 (08:38→20:35)
--- NOTE | 2016-10-31 11:20 | PD.CONS ---
History of Present Illness Service Infectious Disease Consult Requested By Dr Muñoz Reason for Consult Evaluate patient with endocarditis Primary Care Physician No Primary Care Physician Diagnoses: History of Present Illness Patient seen and examined. Records reviewed Patient is a 26 y/o male with a history of IVDU, initially admitted October 28 complaining of fever and shills after he shoot up. He had fever of 103 during presentation at that time. 2 BC were done. Echo showed possible mobile vegetation in TV and MV. Patient signed out AMA October 28. He came back this time to have reevaluation and treatment of his current infection. He is afebrile currently. Denies any pain, no respiratory complaints, no GI or urinary problems. Denies back pain. BC from 10.28 are negative so far. Patient has a long standing history of IVDU in the last 8 years. He has never had any previous infection diagnosed related to his IVDU. Infectious Disease consultation has been requested to assist in evaluation and treatment of his infection. Review of Systems Constitutional: COMPLAINS OF: Fever, Chills Eyes: DENIES: Eye pain Ears, nose, mouth, throat: DENIES: Nasal discharge, Oral lesions, Throat pain, Ear Pain, Sinus Pain Respiratory: DENIES: Cough, Shortness of breath Cardiovascular: DENIES: Chest pain, Syncope, Dyspnea on Exertion Gastrointestinal: DENIES: Abdominal pain, Diarrhea, Nausea, Vomiting Genitourinary: DENIES: Urgency, Hematuria, Dysuria Musculoskeletal: DENIES: Joint pain, Joint Swelling, Neck pain Integumentary: DENIES: Rash Hematologic/lymphatic: DENIES: Bruising Immunologic/allergic: DENIES: Urticaria Neurologic: DENIES: Headache Psychiatric: DENIES: Confusion, Hallucinations Past Family Social History Allergies: Coded Allergies: Sulfa (Verified Allergy, Severe, 10/30/16) Past Medical History Hepatitis C Tobacco Abuse IVDU w/ Dilaudid, heroin Depression Previous OD Past Surgical History None Active Ordered Medications Tylenol Dulcolax Cefepime Lactulose Ativan MOM Zofran Oxycodone Pericolace Senokot Zosyn Vancomycin Family History Unremarkable Social History History of alcohol, quit. Smokes 1ppd. IVDU +Dilaudid, heroin Homeless Not working, used to work as cook. Physical Exam Vital Signs Vital Signs Date Time Temp Pulse Resp B/P Pulse Ox O2 Delivery O2 Flow Rate FiO2 10/31/16 08:00 69 10/31/16 08:00 96 Room Air 10/31/16 08:00 98.0 61 18 116/73 98 10/31/16 04:00 97.8 78 17 104/72 99 10/31/16 00:00 97.8 76 18 108/56 99 10/30/16 21:45 Room Air 10/30/16 21:12 97.8 65 16 105/72 100 10/30/16 18:53 98.2 78 16 126/82 99 Physical Exam GENERAL: Patient is a thin, well-developed young CM, awake and alert, not in respiratory distress. SKIN: Warm and dry. No generalized rash, no ecchymoses and no evidence of embolic lesions. HEAD: Atraumatic. Normocephalic. No temporal wasting, or tenderness. EYES: [place] conjunctiva. No petechia or hemorrhage. Pupils equal, round and reactive to light. Extraocular movements full and intact. No scleral icterus. No injection or drainage. EARS, NOSE AND THROAT: Nose without bleeding or purulent nasal discharge. No sinus tenderness. Mucous membranes pink and moist. No oral lesions noted. No exudate. No oral thrush. NECK: Trachea midline. Supple and not tender, no meningeal signs CARDIOVASCULAR: Regular rate and rhythm. No murmurs, rubs or gallops heard RESPIRATORY: Clear to auscultation. Breath sounds equal bilaterally. No rales , wheezing or rhonchi ABDOMEN: Soft, non-tender, nondistended. Bowel sounds present and normoactive. No guarding. No rebound. No organomegaly. EXTREMITIES: No clubbing, cyanosis, or edema.No joint effusion, has good ROM. No calf tenderness. Well perfused and warm. NEUROLOGICAL: Awake and alert. Cranial nerves grossly intact. Motor grossly within normal limits. PSYCHIATRIC: Normal affect, calm and cooperative. LINE: No evidence of infection Laboratory Laboratory Tests Test 10/30/16 10/31/16 19:30 06:30 White Blood Count 7.2 6.6 Red Blood Count 3.98 3.83 Hemoglobin 11.8 11.5 Hematocrit 34.9 33.3 Mean Corpuscular Volume 87.6 87.2 Mean Corpuscular Hemoglobin 29.7 30.1 Mean Corpuscular Hemoglobin 33.8 34.6 Concent Red Cell Distribution Width 14.0 13.8 Platelet Count 232 210 Mean Platelet Volume 8.1 8.9 Neutrophils (%) (Auto) 59.8 59.1 Lymphocytes (%) (Auto) 30.8 29.8 Monocytes (%) (Auto) 7.8 8.5 Eosinophils (%) (Auto) 0.8 1.8 Basophils (%) (Auto) 0.8 0.8 Neutrophils # (Auto) 4.3 3.9 Lymphocytes # (Auto) 2.2 2.0 Monocytes # (Auto) 0.6 0.6 Eosinophils # (Auto) 0.1 0.1 Basophils # (Auto) 0.1 0.1 CBC Comment DIFF FINAL DIFF FINAL Differential Comment Sodium Level 138 143 Potassium Level 3.5 3.7 Chloride Level 104 109 Carbon Dioxide Level 29.2 25.9 Anion Gap 5 8 Blood Urea Nitrogen 17 11 Creatinine 0.98 0.92 Estimat Glomerular Filtration 92 99 Rate Random Glucose 125 80 Calcium Level 9.1 8.9 Total Bilirubin 0.3 0.4 Aspartate Amino Transf 15 11 (AST/SGOT) Alanine Aminotransferase 42 33 (ALT/SGPT) Alkaline Phosphatase 72 63 Total Protein 6.9 6.3 Albumin 3.5 3.0 Result Diagram: 10/31/1630 10/31/16 0630 Imaging CXR 10/28 - clear Assessment and Plan Assessment and Plan IMPRESSION Mobile density in MV and TV very likely vegetation on echo 10/28, in setting of febrile illness in an IVDU, suspicious for infective endocarditis - usually due to Staph and Strep, but GNR can be seen in IVDU - BC are negative so far Active IVDU Depression Hep C RECOMMENDATION Repeat BC today Baseline ESR and CRP Continue IV vanco Change Zosyn to Cefepime If BC, negative, Rx for most common bacteria which is Staph and Strep - and use IV Vanco Will ask CM to evaluate once C/S are available: a lot of issues with this patient, he is homeless, no insurance, poor compliance; his mother is currently actively participating in his care and could be a good family support when it comes time to discuss D/C I will determine further Rx plans once work-up is completed I will follow along with you Thank you for this consultation Discussed Condition With Explained plan to patient and his mother D/W Chelsie Matias MD Oct 31, 2016 11:20
[2016-10-31] MEDS ORDERED: cloNIDine HCL 0.1 MG TAB PO PRN (12:45)
--- NOTE | 2016-10-31 12:49 | HHI.PR ---
Subjective Remarks No acute events overnight. Afebrile, vital signs stable. Patient reports mild withdrawal symptoms including nausea and pain. He states they are tolerable at this time. The Ativan is helping. Objective Vitals Vital Signs Date Time Temp Pulse Resp B/P Pulse Ox O2 Delivery O2 Flow Rate FiO2 10/31/16 12:00 98.2 67 18 105/57 98 10/31/16 08:00 69 10/31/16 08:00 96 Room Air 10/31/16 08:00 98.0 61 18 116/73 98 10/31/16 04:00 97.8 78 17 104/72 99 10/31/16 00:00 97.8 76 18 108/56 99 10/30/16 21:45 Room Air 10/30/16 21:12 97.8 65 16 105/72 100 10/30/16 18:53 98.2 78 16 126/82 99 I/O 10/30/16 10/30/16 10/30/16 10/31/16 10/31/16 10/31/16 07:00 15:00 23:00 07:00 15:00 23:00 Intake Total 240 ml 1174 ml Output Total 300 ml 160 ml Balance -60 ml 1014 ml Intake Oral 240 ml 100 ml IV Total 1074 ml Output Urine Total 300 ml 160 ml # Bowel Movements 0 0 Result Diagram: 10/31/1630 10/31/16 0630 Objective Remarks GENERAL: Young male in no acute distress. HEENT: PERRLA, EOMI. No scleral icterus or conjunctival pallor. No lid lag or facial droop. CARDIOVASCULAR: Regular rate and rhythm. No obvious murmurs to auscultation. No chest tenderness to palpation. RESPIRATORY: No obvious rhonchi or wheezing. Clear to auscultation. Breath sounds equal bilaterally. GASTROINTESTINAL: Abdomen soft, non-tender, nondistended. BS normal. MUSCULOSKELETAL: Extremities without clubbing, cyanosis, or edema. No obvious deformities. NEUROLOGICAL: Awake, alert and oriented x4. No focal neurologic deficits. Moving both upper and lower extremities spontaneously. A/P Problem List: (1) Endocarditis ICD Code: I38 Status: Acute (2) IVDU (intravenous drug user) ICD Code: F19.90 Status: Acute (3) Non-compliance ICD Code: Z91.19 Status: Acute (4) Tobacco abuse ICD Code: Z72.0 Status: Acute Assessment and Plan 1. Endocarditis: +IVDU, recent admit 10/28/16 w/ Temp 101.3, Echo 10/28/16 w/ tricuspid vegetation, s/p IV Abx, w/ pending eval by ID for likely long-term antibiotics, however pt LEFT AMA. Returns now for re-admission. Blood Cultures 10/21 and 10/28/16 negative. S/p Vanc/Zosyn in ED. No fever/ leukocytosis this admission. ID consulted, recommend Cefepime and Vanc, follow up cultures. If Cx remain negative patient will need extermination supervisor treatment with Vanc. 2. Non-Compliance: LEFT AMA on previous admit, stressed importance of staying for full assessment/treatment. 3. IVDU: w/ Dilaudid, ongoing. Ativan/Clonidine prn. 4. Tobacco Abuse: Counselled. Ativan/NicoDerm prn if needed. 5. DVT Prophylaxis: SCD/Teds. 6. Social work for d/c planning as needed. Discharge Planning Pending final culture results and ID recommendations. CM consulted to assist with discharge Problem Qualifiers (1) Endocarditis: Qualified Code: I33.0 - Infective endocarditis, due to unspecified organism, unspecified chronicity Neetu Valdez MD R3 Oct 31, 2016 12:49
[2016-10-31] MEDS: CEFEPIME INJ 2,000 MG in SODIUM CHLORIDE 0.9% INJ 100 ML IV SCH (13:36)
[2016-10-31] MEDS: VANCOMYCIN INJ 1,500 MG in SODIUM CHLORID 0.9% 500 ML INJ 500 ML IV SCH (17:58)
--- NOTE | 2016-10-31 18:32 | EKG ---
Date Performed: 10/30/2016 Time Performed: 19:26:42 PTAGE: 26 years EKG: Sinus rhythm NORMAL ECG PREVIOUS TRACING : 08/23/2013 16.54 Compared to prior tracing no significant change DOCTOR: Moisés Jensen Interpretating Date/Time 10/31/2016 18:32:07
[2016-11-01] VITALS (7 sets, daily range): BP systolic 108–120; BP diastolic 56–70; PULSE 57–88; RESP 18–24; TEMP 97.2–98.2; O2SAT 97–99
[2016-11-01] MEDS: LORazepam 2 MG/ML VIAL IV PUSH PRN ×7 (00:44→21:51)
[2016-11-01] MEDS: CEFEPIME INJ 2,000 MG in SODIUM CHLORIDE 0.9% INJ 100 ML IV SCH ×2 (00:44→13:02)
[2016-11-01] MEDS: VANCOMYCIN INJ 1,500 MG in SODIUM CHLORID 0.9% 500 ML INJ 500 ML IV SCH ×2 (05:03→17:28)
[2016-11-01 06:59] LABS: AUTOMATED NEUTROPHIL # 4.7 TH/MM3 (1.8-7.7); BASOPHIL # 0.1 TH/MM3 (0-0.2); BASOPHIL % 0.9 % (0.0-2.0); EOSINOPHIL # 0.1 TH/MM3 (0-0.4); EOSINOPHIL % 1.4 % (0.0-4.0); HEMATOCRIT 34.4 % (39.0-51.0); HEMO FLAGS DIFF FINAL; LYMPH % 30.5 % (9.0-44.0); LYMPHOCYTE # 2.5 TH/MM3 (1.0-4.8); MEAN CELL VOLUME 88.4 FL (80.0-100.0); MONO % 8.3 % (0.0-8.0); NEUT % 58.9 % (16.0-70.0); PLATELET COUNT 230 TH/MM3 (150-450); RED BLOOD COUNT 3.89 MIL/MM3 (4.50-5.90); RED CELL DISTRIBUTION WIDTH 13.7 % (11.6-17.2)
[2016-11-01 07:23] LABS: BICARBONATE 26.5 MEQ/L (21.0-32.0); POTASSIUM 3.5 MEQ/L (3.5-5.1)
[2016-11-01] MEDS: SODIUM CHLORIDE 0.9% FLUSH 10 ML FLUSH IV FLUSH SCH ×2 (08:38→21:00)
[2016-11-01] MEDS: DOCUSATE SODIUM 50 MG/SENNA 8.6 MG TAB PO SCH ×2 (08:39→21:00)
--- NOTE | 2016-11-01 11:59 | HHI.PR ---
Subjective Remarks Written by Nikky Gomez PA-C acting as scribe for Dr. Olson on 11/01/16 at 11:47. Follow up on patient with endocarditis. Patient seen and examined. Patient states he feels okay. C/O some anxiety. No fever or chills. Denies any chest pain or shortness or breath. Tolerating diet. Denies any N/V or abdominal pain. Patient has plans for rehab already in place pending his discharge. Objective Vitals Vital Signs Date Time Temp Pulse Resp B/P Pulse Ox O2 Delivery O2 Flow Rate FiO2 11/01/16 08:30 57 11/01/16 08:00 97.3 69 20 109/70 99 11/01/16 08:00 Room Air 11/01/16 05:00 98.1 76 18 108/67 98 11/01/16 00:14 97.7 66 24 110/61 98 10/31/16 20:42 72 10/31/16 20:39 Room Air 10/31/16 20:00 Room Air 10/31/16 19:39 97.9 62 24 115/75 99 10/31/16 16:00 98.8 77 18 109/59 98 10/31/16 12:00 98.2 67 18 105/57 98 I/O 10/31/16 10/31/16 10/31/16 11/01/16 11/01/16 11/01/16 06:59 14:59 22:59 06:59 14:59 22:59 Intake Total 1174 ml 480 ml 240 ml 240 ml Output Total 160 ml 300 ml Balance 1014 ml 480 ml 240 ml -60 ml Intake Oral 100 ml 480 ml 240 ml 240 ml IV Total 1074 ml Output Urine Total 160 ml 300 ml # Voids 2 4 # Bowel Movements 0 0 0 0 Result Diagram: 11/01/16 0558 11/01/1658 Objective Remarks GENERAL: Well-nourished, well-developed patient in NAD. Awake and alert. Appears comfortable. Mother is at the bedside with patient's infant daughter. SKIN: Warm and dry. No rash. HEENT: Normocephalic. Atraumatic. EOMI. MMM. NECK: Supple. Trachea midline. CARDIOVASCULAR: Regular rate and rhythm. S1, S2 noted. No murmur appreciated. RESPIRATORY: No accessory muscle use. Clear to auscultation. Breath sounds equal bilaterally. GASTROINTESTINAL: Abdomen soft, non-tender, nondistended. Normoactive bowel sounds x4. MUSCULOSKELETAL: No obvious deformities. Extremities without clubbing, cyanosis , or edema. NEUROLOGICAL: Awake and alert. Able to move all extremities. Normal speech. PSYCHIATRIC: Appropriate mood and affect Medications and IVs Current Medications Medications (Trade) Dose Ordered Sig/Ubaldo Route Start Time Stop Time Status Last Admin (NS Flush) 2 ml UNSCH PRN IV FLUSH 10/30/16 21:00 (NS Flush) 2 ml BID IV FLUSH 10/30/16 21:00 10/31/16 20:35 (Zofran Inj) 4 mg Q6H PRN IVP 10/30/16 21:00 (Tylenol) 650 mg Q6H PRN PO 10/30/16 21:00 (Roxicodone) 10 mg Q4H PRN PO 10/30/16 21:00 11/01/16 09:02 (Roxicodone) 5 mg Q4H PRN PO 10/30/16 21:00 10/31/16 20:34 (Concepción-Colace) 1 tab BID PO 10/30/16 21:00 (Milk Of Magnesia Liq) 30 ml Q12H PRN PO 10/30/16 21:00 (Senokot) 17.2 mg Q12H PRN PO 10/30/16 21:00 (Dulcolax Supp) 10 mg DAILY PRN RECTAL 10/30/16 21:00 Lactulose 30 ml 30 ml DAILY PRN PO 10/30/16 21:00 (Vancomycin Consult Pharmacy) 0 ml @ 0 mls/hr UNSCH OTHER 10/30/16 21:00 Lorazepam 1 mg 1 mg Q2H PRN IV PUSH 10/30/16 21:00 11/01/16 09:05 (Maxipime Inj/NS Inj) 100 ml @ 200 mls/hr Q12H IV 10/31/16 13:00 11/01/16 00:44 Clonidine 0.1 mg 0.1 mg Q8HR PRN PO 10/31/16 12:45 (Vancomycin Inj/ NS 500 ml Inj) 515 ml @ 250 mls/hr Q12H IV 10/31/16 18:00 11/01/16 05:03 Miscellaneous Information SPECIFIC LAB TO BE DRAWN:VANCOMYCIN TROUGH DATE TO... ONCE ONCE .XX 11/02/16 05:45 11/02/16 05:46 A/P Problem List: (1) Endocarditis ICD Code: I38 Status: Acute (2) IVDU (intravenous drug user) ICD Code: F19.90 Status: Acute (3) Non-compliance ICD Code: Z91.19 Status: Acute (4) Tobacco abuse ICD Code: Z72.0 Status: Acute Assessment and Plan 26-year-old male with history of IV drug use admitted with endocarditis 1. Endocarditis: +IVDU, recent admit 10/28/16 w/ Temp 101.3, Echo 10/28/16 w/ tricuspid vegetation, s/p IV Abx, w/ pending eval by ID for likely long-term antibiotics, however pt LEFT AMA. Returns now for re-admission. Blood Cultures 10/21 and 10/28/16 negative. S/p Vanc/Zosyn in ED. Patient remains afebrile and white count is normal. ID following, recommend Cefepime and Vanc, continue. Blood Cx negative x 1 day. Continue to follow. If Cx remain negative patient will need care home treatment with Vanc. 2. Hep C reactive 10/29/16: Patient previously tested negative. Discussed at length with mother and patient. Offered HIV testing. Patient will need to follow-up with GI as outpatient to discuss further evaluation and treatment. 3. IVDU: w/ Dilaudid, ongoing. Ativan/Clonidine prn. 4. Anxiety: Change IV Ativan to po prn. 5. Tobacco Abuse: Counselled. Ativan/NicoDerm prn if needed. 6. DVT Prophylaxis: SCD/Teds. 7. Social work for d/c planning as needed. This note was transcribed by michelle Gomez PA-C. I, Dr. Juanjo Olson personally performed the history, physical exam, and medical decision making; and confirmed the accuracy of the information in the transcribed note. Authenticated by Dr. Juanjo Olson on 11/01/16 at 11:47. Discharge Planning Pending final culture results and ID recommendations. CM consulted to assist with discharge Problem Qualifiers (1) Endocarditis: Qualified Code: I33.0 - Infective endocarditis, due to unspecified organism, unspecified chronicity Nikky Gomez Nov 01, 2016 11:59 Juanjo Olson MD Nov 01, 2016 12:03
[2016-11-02] VITALS (7 sets, daily range): BP systolic 104–127; BP diastolic 56–77; PULSE 62–94; RESP 16–19; TEMP 97.5–98.8; O2SAT 97–100
[2016-11-02] MEDS: CEFEPIME INJ 2,000 MG in SODIUM CHLORIDE 0.9% INJ 100 ML IV SCH ×2 (01:20→12:14)
[2016-11-02] MEDS ORDERED: PHARMACY ORDERED LAB ONE (05:45)
[2016-11-02] MEDS: VANCOMYCIN INJ 1,500 MG in SODIUM CHLORID 0.9% 500 ML INJ 500 ML IV SCH ×2 (05:47→17:19)
[2016-11-02] MEDS: LORazepam 2 MG/ML VIAL IV PUSH PRN ×4 (05:48→21:31)
[2016-11-02] MEDS: DOCUSATE SODIUM 50 MG/SENNA 8.6 MG TAB PO SCH ×2 (09:00→21:00)
[2016-11-02] MEDS: SODIUM CHLORIDE 0.9% FLUSH 10 ML FLUSH IV FLUSH SCH ×2 (09:00→21:00)
--- NOTE | 2016-11-02 11:55 | HHI.PR ---
Subjective Remarks Follow-up endocarditis 11/02/16-patient seen and examined, currently afebrile and denies any chest pain or shortness of breath. Culture negative to date. HIV pending Objective Vitals Vital Signs Date Time Temp Pulse Resp B/P Pulse Ox O2 Delivery O2 Flow Rate FiO2 11/02/16 08:05 64 11/02/16 08:05 Room Air 11/02/16 08:04 97.5 68 16 127/67 100 11/02/16 04:00 97.9 62 18 104/61 99 11/02/16 00:00 98.0 70 18 105/58 99 11/01/16 20:00 88 11/01/16 20:00 Room Air 11/01/16 20:00 97.2 87 18 116/56 98 11/01/16 16:00 98.1 74 20 115/63 97 11/01/16 12:00 98.2 78 20 120/61 97 I/O 11/01/16 11/01/16 11/01/16 11/02/16 11/02/16 11/02/16 07:00 15:00 23:00 07:00 15:00 23:00 Intake Total 240 ml 720 ml 3266 ml Output Total 300 ml Balance -60 ml 720 ml 3266 ml Intake Oral 240 ml 720 ml 480 ml IV Total 2786 ml Output Urine Total 300 ml # Voids 4 3 # Bowel Movements 0 1 1 Result Diagram: 11/01/16 0558 11/01/16 0558 Objective Remarks GENERAL: NAD SKIN: Warm and dry. HEAD: Normocephalic. EYES: No scleral icterus. No injection or drainage. NECK: Supple, trachea midline. No JVD or lymphadenopathy. CARDIOVASCULAR: Regular rate and rhythm without murmurs, gallops, or rubs. RESPIRATORY: Breath sounds equal bilaterally. No accessory muscle use. GASTROINTESTINAL: Abdomen soft, non-tender, nondistended. MUSCULOSKELETAL: No cyanosis, or edema. BACK: Nontender without obvious deformity. No CVA tenderness. A/P Problem List: (1) Endocarditis ICD Code: I38 Status: Acute (2) IVDU (intravenous drug user) ICD Code: F19.90 Status: Acute (3) Non-compliance ICD Code: Z91.19 Status: Acute (4) Tobacco abuse ICD Code: Z72.0 Status: Acute Assessment and Plan 26-year-old male with history of IV drug use admitted with endocarditis 1. Endocarditis: +IVDU, Echo 10/28/16 w/ tricuspid vegetation, S/p Vanc/Zosyn in ED. ID following, recommend Cefepime and Vanc, continue. Blood Cx negative x 2 days. Continue to follow. If Cx remain negative patient will need vermin exterminator treatment with Vanc. 2. Hep C reactive 10/29/16: Patient previously tested negative. HIV pending. Patient will need to follow-up with GI as outpatient to discuss further evaluation and treatment. 3. IVDU: w/ Dilaudid, ongoing. Ativan/Clonidine prn. 4. Anxiety: Ativan when necessary 5. Tobacco Abuse: Counselled. Ativan/NicoDerm prn if needed. 6. DVT Prophylaxis: SCD/Teds. Problem Qualifiers (1) Endocarditis: Qualified Code: I33.0 - Infective endocarditis, due to unspecified organism, unspecified chronicity Juanjo Olson MD Nov 02, 2016 11:[address] Juanjo Olson on 11/01/16 at 11:47. Problem Qualifiers (1) Endocarditis: Qualified Code: I33.0 - Infective endocarditis, due to unspecified organism, unspecified chronicity Juanjo Olson MD Nov 02, 2016 11:55
--- NOTE | 2016-11-02 15:26 | HHI.IDPN ---
Subjective Subjective Remarks Patient is a 26 y/o male with a history of IVDU, initially admitted October 28 complaining of fever and shills after he shoot up. He had fever of 103 during presentation at that time. 2 BC were done. Echo showed possible mobile vegetation in TV and MV. Patient signed out AMA October 28. He came back this time to have reevaluation and treatment of his current infection. He is afebrile currently. Denies any pain, no respiratory complaints, no GI or urinary problems. Denies back pain. BC from 10.28 are negative so far. Patient has a long standing history of IVDU in the last 8 years. He has never had any previous infection diagnosed related to his IVDU. Notes reviewed Remains afebrile Having intermittent diarrhea No abdominal pain No rash or itching BC 10/28 negative Repeat BC now are negative ESR 30 CRP 1.35 Mom wants for patient to go to drug rehab center Antibiotics Vanco Cefepime Lines PIV Past Medical History Reviewed Allergies: Coded Allergies: Sulfa (Verified Allergy, Severe, 10/30/16) Objective . Vital Signs Date Time Temp Pulse Resp B/P Pulse Ox O2 Delivery O2 Flow Rate FiO2 11/02/16 12:04 98.2 74 16 107/68 97 11/02/16 08:05 64 11/02/16 08:05 Room Air 11/02/16 08:04 97.5 68 16 127/67 100 11/02/16 04:00 97.9 62 18 104/61 99 11/02/16 00:00 98.0 70 18 105/58 99 11/01/16 20:00 88 11/01/16 20:00 Room Air 11/01/16 20:00 97.2 87 18 116/56 98 11/01/16 16:00 98.1 74 20 115/63 97 11/01/16 11/01/16 11/02/16 14:59 22:59 06:59 Intake Total 720 ml 3266 ml Balance 720 ml 3266 ml Intake Oral 720 ml 480 ml IV Total 2786 ml # Voids 4 3 # Bowel Movements 1 1 . Laboratory Tests Test 11/01/16 05:58 White Blood Count 8.0 TH/MM3 Red Blood Count 3.89 MIL/MM3 Hemoglobin 11.7 GM/DL Hematocrit 34.4 % Mean Corpuscular Volume 88.4 FL Mean Corpuscular Hemoglobin 30.0 PG Mean Corpuscular Hemoglobin 34.0 % Concent Red Cell Distribution Width 13.7 % Platelet Count 230 TH/MM3 Mean Platelet Volume 8.3 FL Neutrophils (%) (Auto) 58.9 % Lymphocytes (%) (Auto) 30.5 % Monocytes (%) (Auto) 8.3 % Eosinophils (%) (Auto) 1.4 % Basophils (%) (Auto) 0.9 % Neutrophils # (Auto) 4.7 TH/MM3 Lymphocytes # (Auto) 2.5 TH/MM3 Monocytes # (Auto) 0.7 TH/MM3 Eosinophils # (Auto) 0.1 TH/MM3 Basophils # (Auto) 0.1 TH/MM3 CBC Comment DIFF FINAL Differential Comment Laboratory Tests Test 11/01/16 05:58 Sodium Level 140 MEQ/L Potassium Level 3.5 MEQ/L Chloride Level 109 MEQ/L Carbon Dioxide Level 26.5 MEQ/L Anion Gap 5 MEQ/L Blood Urea Nitrogen 11 MG/DL Creatinine 0.79 MG/DL Estimat Glomerular Filtration 118 ML/MIN Rate Random Glucose 84 MG/DL Calcium Level 9.0 MG/DL Microbiology Date/Time Procedure Status Source Growth 10/31/16 12:48 Aerobic Blood Culture - Preliminary Resulted Blood Peripheral NO GROWTH IN 2 DAYS 10/31/16 12:48 Anaerobic Blood Culture - Preliminary Resulted Blood Peripheral NO GROWTH IN 2 DAYS 10/31/16 13:00 Aerobic Blood Culture - Preliminary Resulted Blood Peripheral NO GROWTH IN 2 DAYS 10/31/16 13:00 Anaerobic Blood Culture - Preliminary Resulted Blood Peripheral NO GROWTH IN 2 DAYS Physical Exam GENERAL: awake and alert, not in respiratory distress. SKIN: Warm and dry. No generalized rash, no ecchymoses and no evidence of embolic lesions. HEAD: Atraumatic. Normocephalic. No temporal wasting, or tenderness. EYES: [place] conjunctiva. No petechia or hemorrhage. Pupils equal, round and reactive to light. Extraocular movements full and intact. No scleral icterus. No injection or drainage. EARS, NOSE AND THROAT: Nose without bleeding or purulent nasal discharge. No sinus tenderness. Mucous membranes pink and moist. No oral lesions noted. NECK: Trachea midline. Supple and not tender, no meningeal signs CARDIOVASCULAR: Regular rate and rhythm. No murmurs, rubs or gallops heard RESPIRATORY: Clear to auscultation. Breath sounds equal bilaterally. No rales , wheezing or rhonchi ABDOMEN: Soft, non-tender, nondistended. Bowel sounds present and normoactive. No guarding. No rebound. No organomegaly. EXTREMITIES: No clubbing, cyanosis, or edema. No calf tenderness. Well perfused and warm. NEUROLOGICAL: Non-focal PSYCHIATRIC: Normal affect, calm and cooperative. LINE: No evidence of infection Assessment & Plan Remarks IMPRESSION Mobile density in MV and TV very likely vegetation on echo 10/28, in setting of febrile illness in an IVDU, suspicious for infective endocarditis - usually due to Staph and Strep, but GNR can be seen in IVDU - BC are negative so far Active IVDU Depression Hep C RECOMMENDATION Continue vanco - will Rx for most common pathogen, ?fastidious Strep, GPC, difficult to grow Stop Cefepime Follow C/S Looking at treatment options for this patient Will give Rx for total 28 days D/W CM - to look at patient assistance Chelsie Horn MD Nov 02, 2016 15:26
[2016-11-03] VITALS: BP 136/78; PULSE 72; RESP 19; TEMP 98.2; O2SAT 100
[2016-11-03 04:00] VITALS: BP 108/74; PULSE 60; RESP 20; TEMP 97.8; O2SAT 99
[2016-11-03] MEDS: VANCOMYCIN INJ 1,500 MG in SODIUM CHLORID 0.9% 500 ML INJ 500 ML IV SCH ×2 (05:52→18:22)
[2016-11-03 08:00] VITALS: BP 114/62; PULSE 59; RESP 18; TEMP 98; O2SAT 98
[2016-11-03] MEDS: DOCUSATE SODIUM 50 MG/SENNA 8.6 MG TAB PO SCH (09:00)
[2016-11-03] MEDS: SODIUM CHLORIDE 0.9% FLUSH 10 ML FLUSH IV FLUSH SCH ×2 (09:59→20:13)
[2016-11-03 12:00] VITALS: BP 110/55; PULSE 79; RESP 18; TEMP 98.3; O2SAT 98
--- NOTE | 2016-11-03 14:37 | HHI.PR ---
Subjective Remarks Follow-up endocarditis 11/02/16-patient seen and examined, currently afebrile and denies any chest pain or shortness of breath. Culture negative to date. HIV pending 11/03/16-patient seen and examined, no chest pain or shortness of breath. Patient's mom's concern regarding discharge disposition home; states DCF is involved and would be difficult to have patient to her house; Also her is having a surgery this week and she would not be available for the next 48hours. Objective Vitals Vital Signs Date Time Temp Pulse Resp B/P Pulse Ox O2 Delivery O2 Flow Rate FiO2 11/03/16 12:00 98.3 79 18 110/55 98 11/03/16 11:34 18 11/03/16 08:00 98.0 59 18 114/62 98 11/03/16 04:00 97.8 60 20 108/74 99 11/03/16 04:00 Room Air 11/03/16 00:00 98.2 72 19 136/78 100 11/03/16 00:00 Room Air 11/02/16 20:00 Room Air 11/02/16 20:00 98.1 69 19 124/77 100 11/02/16 20:00 94 11/02/16 16:05 98.8 78 16 107/56 97 I/O 11/02/16 11/02/16 11/02/16 11/03/16 11/03/16 11/03/16 07:00 15:00 23:00 07:00 15:00 23:00 Intake Total 1677 ml 480 ml 1264 ml Balance 1677 ml 480 ml 1264 ml Intake Oral 420 ml 480 ml 240 ml IV Total 1257 ml 1024 ml # Voids 5 2 1 # Bowel Movements 0 0 0 Result Diagram: 11/01/16 0558 11/03/16 0740 Objective Remarks GENERAL: NAD SKIN: Warm and dry. HEAD: Normocephalic. EYES: No scleral icterus. No injection or drainage. NECK: Supple, trachea midline. No JVD or lymphadenopathy. CARDIOVASCULAR: Regular rate and rhythm without murmurs, gallops, or rubs. RESPIRATORY: Breath sounds equal bilaterally. No accessory muscle use. GASTROINTESTINAL: Abdomen soft, non-tender, nondistended. MUSCULOSKELETAL: No cyanosis, or edema. BACK: Nontender without obvious deformity. No CVA tenderness. A/P Problem List: (1) Endocarditis ICD Code: I38 Status: Acute (2) IVDU (intravenous drug user) ICD Code: F19.90 Status: Acute (3) Non-compliance ICD Code: Z91.19 Status: Acute (4) Tobacco abuse ICD Code: Z72.0 Status: Acute Assessment and Plan 26-year-old male with history of IV drug use admitted with endocarditis 1. Endocarditis: +IVDU, Echo 10/28/16 w/ tricuspid vegetation, S/p Vanc/Zosyn in ED. ID following, s/p Cefepime and continue Vanc. Blood Cx negative x 3 days. Patient will need therapy per ID for total of 28 days 2. Hep C reactive 10/29/16: Patient previously tested negative. HIV negative. Patient will need to follow-up with GI as outpatient to discuss further evaluation and treatment. 3. IVDU: w/ Dilaudid, ongoing. Ativan/Clonidine prn. 4. Anxiety: Ativan when necessary 5. Tobacco Abuse: Counselled. Ativan/NicoDerm prn if needed. 6. DVT Prophylaxis: SCD/Teds. Problem Qualifiers (1) Endocarditis: Qualified Code: I33.0 - Infective endocarditis, due to unspecified organism, unspecified chronicity Juanjo Olson MD Nov 03, 2016 14:37
[2016-11-03 16:00] VITALS: BP 118/63; PULSE 88; RESP 18; TEMP 98.3; O2SAT 97
[2016-11-03] MEDS ORDERED: DOCUSATE SODIUM 50 MG/SENNA 8.6 MG TAB PO PRN (16:00)
[2016-11-03] MEDS: LORazepam 2 MG/ML VIAL IV PUSH PRN ×2 (16:07→21:13)
[2016-11-03 20:00] VITALS: BP 130/78; PULSE 81; PULSE 85; RESP 20; TEMP 98.7; O2SAT 99
[2016-11-04] VITALS: BP 107/59; PULSE 70; RESP 20; TEMP 98.2; O2SAT 98
[2016-11-04 04:00] VITALS: BP 111/72; PULSE 79; RESP 20; TEMP 98.1; O2SAT 98
[2016-11-04] MEDS: VANCOMYCIN INJ 1,500 MG in SODIUM CHLORID 0.9% 500 ML INJ 500 ML IV SCH (04:21)
[2016-11-04 08:00] VITALS: BP 99/54; PULSE 66; RESP 20; TEMP 98.2; O2SAT 97
[2016-11-04] MEDS: SODIUM CHLORIDE 0.9% FLUSH 10 ML FLUSH IV FLUSH SCH (09:00)
[2016-11-04] MEDS: LORazepam 2 MG/ML VIAL IV PUSH PRN (10:21)
--- NOTE | 2016-11-04 11:57 | HHI.PR ---
Subjective Remarks Follow-up endocarditis 11/02/16-patient seen and examined, currently afebrile and denies any chest pain or shortness of breath. Culture negative to date. HIV pending 11/03/16-patient seen and examined, no chest pain or shortness of breath. Patient's mom's concern regarding discharge disposition home; states DCF is involved and would be difficult to have patient to her house; Also her is having a surgery this week and she would not be available for the next 48hours. 11/04/16-patient seen and examined, stable and no complaint. Afebrile and denies any shortness of breath. Objective Vitals Vital Signs Date Time Temp Pulse Resp B/P Pulse Ox O2 Delivery O2 Flow Rate FiO2 11/04/16 08:00 98.2 66 20 99/54 97 11/04/16 04:00 98.1 79 20 111/72 98 11/04/16 00:00 98.2 70 20 107/59 98 11/03/16 20:00 98.7 81 20 130/78 99 11/03/16 20:00 85 11/03/16 20:00 Room Air 11/03/16 16:00 98.3 88 18 118/63 97 11/03/16 12:00 98.3 79 18 110/55 98 I/O 11/03/16 11/03/16 11/03/16 11/04/16 11/04/16 11/04/16 07:00 15:00 23:00 07:00 15:00 23:00 Intake Total 1264 ml 600 ml 980 ml 390 ml Balance 1264 ml 600 ml 980 ml 390 ml Intake Oral 240 ml 600 ml 480 ml 390 ml IV Total 1024 ml 500 ml # Voids 1 4 5 1 # Bowel Movements 0 1 2 Result Diagram: 11/01/16 0558 11/03/16 0740 Objective Remarks GENERAL: NAD SKIN: Warm and dry. HEAD: Normocephalic. EYES: No scleral icterus. No injection or drainage. NECK: Supple, trachea midline. No JVD or lymphadenopathy. CARDIOVASCULAR: Regular rate and rhythm without murmurs, gallops, or rubs. RESPIRATORY: Breath sounds equal bilaterally. No accessory muscle use. GASTROINTESTINAL: Abdomen soft, non-tender, nondistended. MUSCULOSKELETAL: No cyanosis, or edema. BACK: Nontender without obvious deformity. No CVA tenderness. A/P Problem List: (1) Endocarditis ICD Code: I38 Status: Acute (2) IVDU (intravenous drug user) ICD Code: F19.90 Status: Acute (3) Non-compliance ICD Code: Z91.19 Status: Acute (4) Tobacco abuse ICD Code: Z72.0 Status: Acute Assessment and Plan 26-year-old male with history of IV drug use admitted with endocarditis 1. Endocarditis: +IVDU, Echo 10/28/16 w/ tricuspid vegetation, S/p Vanc/Zosyn in ED. ID following, s/p Cefepime and continue Vanc. Blood Cx negative x 4 days. Patient will need therapy per ID for total of 28 days 2. Hep C reactive 10/29/16: Patient previously tested negative. HIV negative. Patient will need to follow-up with GI as outpatient to discuss further evaluation and treatment. 3. IVDU: w/ Dilaudid, ongoing. Ativan/Clonidine prn. 4. Anxiety: Ativan when necessary 5. Tobacco Abuse: Counselled. Ativan/NicoDerm prn if needed. 6. DVT Prophylaxis: SCD/Teds. Problem Qualifiers (1) Endocarditis: Qualified Code: I33.0 - Infective endocarditis, due to unspecified organism, unspecified chronicity Juanjo Olson MD Nov 04, 2016 11:57
[2016-11-04 12:00] VITALS: BP 118/73; PULSE 89; RESP 20; TEMP 98.3; O2SAT 99
--- NOTE | 2016-11-04 12:49 | HHI.IDPN ---
Subjective Subjective Remarks Patient is a 26 y/o male with a history of IVDU, initially admitted October 28 complaining of fever and shills after he shoot up. He had fever of 103 during presentation at that time. 2 BC were done. Echo showed possible mobile vegetation in TV and MV. Patient signed out AMA October 28. He came back this time to have reevaluation and treatment of his current infection. He is afebrile currently. Denies any pain, no respiratory complaints, no GI or urinary problems. Denies back pain. BC from 10.28 are negative so far. Patient has a long standing history of IVDU in the last 8 years. He has never had any previous infection diagnosed related to his IVDU. Notes reviewed Remains afebrile Patient anxious to go home His BC have been negative States he will be going to a skilled nursing house He will be looking still at [facility] No abdominal pain No rash or itching BC 10/28 negative Repeat BC now are negative ESR 30 CRP 1.35 Antibiotics Vanco Cefepime Lines PIV Past Medical History Reviewed Allergies: Coded Allergies: Sulfa (Verified Allergy, Severe, 10/30/16) Objective . Vital Signs Date Time Temp Pulse Resp B/P Pulse Ox O2 Delivery O2 Flow Rate FiO2 11/04/16 12:00 97 Room Air 11/04/16 08:00 98.2 66 20 99/54 97 11/04/16 04:00 98.1 79 20 111/72 98 11/04/16 00:00 98.2 70 20 107/59 98 11/03/16 20:00 98.7 81 20 130/78 99 11/03/16 20:00 85 11/03/16 20:00 Room Air 11/03/16 16:00 98.3 88 18 118/63 97 11/03/16 11/03/16 11/04/16 14:59 22:59 06:59 Intake Total 600 ml 980 ml 390 ml Balance 600 ml 980 ml 390 ml Intake Oral 600 ml 480 ml 390 ml IV Total 500 ml # Voids 4 5 1 # Bowel Movements 1 2 . Laboratory Tests Test 11/03/16 07:40 Creatinine 0.79 MG/DL Estimat Glomerular Filtration 118 ML/MIN Rate Physical Exam GENERAL: awake and alert, not in respiratory distress. Ambulating in hallways SKIN: Warm and dry. No generalized rash, no ecchymoses and no evidence of embolic lesions. HEAD: Atraumatic. Normocephalic. No temporal wasting, or tenderness. EYES: [place] conjunctiva. No petechia or hemorrhage. Pupils equal, round and reactive to light. Extraocular movements full and intact. No scleral icterus. No injection or drainage. EARS, NOSE AND THROAT: Nose without bleeding or purulent nasal discharge. Mucous membranes pink and moist. No oral lesions noted. NECK: Trachea midline. Supple and not tender, no meningeal signs CARDIOVASCULAR: Regular rate and rhythm. No murmurs, rubs or gallops heard RESPIRATORY: Clear to auscultation. Breath sounds equal bilaterally. No rales , wheezing or rhonchi ABDOMEN: Soft, non-tender, nondistended. Bowel sounds present and normoactive. No guarding. No rebound. No organomegaly. EXTREMITIES: No clubbing, cyanosis, or edema. No calf tenderness. Well perfused and warm. NEUROLOGICAL: Non-focal PSYCHIATRIC: Normal affect, calm and cooperative. LINE: No evidence of infection Assessment & Plan Remarks IMPRESSION Mobile density in MV and TV very likely vegetation on echo 10/28, in setting of febrile illness in an IVDU, suspicious for infective endocarditis - usually due to Staph and Strep, but GNR can be seen in IVDU - BC are negative so far Active IVDU Depression Hep C RECOMMENDATION Continue vanco - will Rx for most common pathogen, ?fastidious Strep, GPC, difficult to grow Follow C/S Looking at treatment options for this patient Will give Rx for total 28 days Updated patient that we are still looking at Rx options for him Chelsie Horn MD Nov 04, 2016 12:49
--- NOTE | 2016-11-04 13:44 | PD.AMA ---
Against Medical Advice Note Diagnosis: (1) Endocarditis (2) IVDU (intravenous drug user) Discharge Disposition: Against Medical Advice AMA Statement Patient David Brown has decided to leave the hospital against medical advice. This patient has the capacity to refuse care and understands the risks of leaving, including permanent disability and/or , and has had an opportunity to ask questions about his condition. The patient has been informed that he may return for care at any time, and follow up has been arranged/ advised. Juanjo Olson MD Nov 04, 2016 13:44
--- NOTE | 2016-11-08 14:23 | HHI.DS ---
Discharge Summary Admission Date Oct 30, 2016 at 20:56 Discharge Date: Nov 04, 2016 Admitting Diagnosis endocarditis, IVDU (1) Endocarditis ICD Code: I38 (2) IVDU (intravenous drug user) ICD Code: F19.90 (3) Non-compliance ICD Code: Z91.19 (4) Tobacco abuse ICD Code: Z72.0 Procedures none Brief History - From Admission This is a 26-year-old male with a PMH of Hepatitis C, Tobacco Abuse and IVDU w/ Dilaudid who presented to the ER w/ complaints of chest pain and fever. Recent admit 10/28/16 for similar, Echo w/ vegetation anterior leaf of tricuspid valve, was started on IV Abx and was to have eval by ID, however pt Left AMA. Returns now for re-admission. Blood Cult 10/21 negative. Repeat Blood Cultures obtained tonight. S/p Vanc/Zosyn in ER. BP 170/67, HR 77, O2 sat 99% on RA, Afebrile. CBC unremarkable. Chemistry essentially unremarkable. PE at Discharge GENERAL: NAD SKIN: Warm and dry. HEAD: Normocephalic. EYES: No scleral icterus. No injection or drainage. NECK: Supple, trachea midline. No JVD or lymphadenopathy. CARDIOVASCULAR: Regular rate and rhythm without murmurs, gallops, or rubs. RESPIRATORY: Breath sounds equal bilaterally. No accessory muscle use. GASTROINTESTINAL: Abdomen soft, non-tender, nondistended. MUSCULOSKELETAL: No cyanosis, or edema. BACK: Nontender without obvious deformity. No CVA tenderness. Hospital Course Patient left AMA on 11/04/16; however prior to leaving AMA he was treated for 1. Endocarditis: +IVDU, Echo 10/28/16 w/ tricuspid vegetation, S/p Vanc/Zosyn in ED. ID following, treated with Vanc. Blood Cx negative x 4 days. 2. Hep C reactive 10/29/16: Patient previously tested negative. HIV negative. Patient will need to follow-up with GI as outpatient to discuss further evaluation and treatment. 3. IVDU: w/ Dilaudid, ongoing. Ativan/Clonidine prn. 4. Anxiety: Ativan when necessary 5. Tobacco Abuse: Counselled. Ativan/NicoDerm prn if needed. 6. DVT Prophylaxis: SCD/Teds. Pt Condition on Discharge: Stable Discharge Disposition: Discharge Home Discharge Time: <= 30 minutes Discharge Instructions DIET: Follow Instructions for: Heart Healthy Diet Activities you can perform: Regular-No Restrictions Juanjo Olson MD Nov 08, 2016 14:23
== END 2016-11-04 13:54 | disposition left against medical advice (07) | DRG 290 ==
LOC: NEPC 18:49 → NEDA 20:56 → N04B 21:30
PROVIDERS: ADMIT Hospitalist; ATTEND Hospitalist
DX: I33.0 Acute and subacute infective endocarditis (principal); F32.9 Major depressive disorder, single episode, unspecified; F17.210 Nicotine dependence, cigarettes, uncomplicated; Z91.19 Patient's noncompliance with other medical treatment and regimen; Z59.0 Homelessness; B19.20 Unspecified viral hepatitis C without hepatic coma; F41.9 Anxiety disorder, unspecified; K21.9 Gastro-esophageal reflux disease without esophagitis; F11.10 Opioid abuse, uncomplicated
CPT/HCPCS: 76937; 80048; 80053; 80202; 82565; 85025; 85652; 86140; 86703; 87040; 93005; 96365; 96367; J0692; J2060; J2543; J3370; J7030; J7040; J7050

== ENCOUNTER 2017-03-21 13:17 | Emergency (ER) | payer SELFPAY ==
[2017-03-21 13:18] VITALS: BP 134/80; PULSE 108; RESP 16; TEMP 98.1; O2SAT 97
[2017-03-21] MEDS ORDERED: IOHEXOL 350 MG/ML 10 ML VIAL (for RAD DIAG) IVCONTRAST ONE (13:18)
--- NOTE | 2017-03-21 14:05 | RADRPT ---
EXAM DATE/TIME: 03/21/2017 13:49 [facility] COMPARISON: No previous studies available for comparison. INDICATIONS : Shortness of breath, cough for 3-4 days. MEDICAL HISTORY : None. SURGICAL HISTORY : None. ENCOUNTER: Initial ACUITY: 3 days PAIN SCORE: 0/10 LOCATION: Bilateral chest FINDINGS: PA and lateral views of the chest demonstrate the lungs to be symmetrically aerated without evidence of mass, infiltrate or effusion. The cardiomediastinal contours are unremarkable. Osseous structure s are intact. CONCLUSION: No acute disease. Juanjo Patel MD on March 21, 2017 at 14:04 Board Certified Radiologist. This report was verified electronically.
[2017-03-21] MEDS ORDERED: SODIUM CHLORIDE 0.9% FLUSH 10 ML FLUSH IVF PRN (15:30)
[2017-03-21 16:01] VITALS: BP 106/65; PULSE 89; RESP 18; TEMP 98.3; O2SAT 100
[2017-03-21 16:20] LABS: AUTOMATED NEUTROPHIL # 5.9 TH/MM3 (1.8-7.7); BASOPHIL # 0.1 TH/MM3 (0-0.2); BASOPHIL % 0.6 % (0.0-2.0); EOSINOPHIL # 0.1 TH/MM3 (0-0.4); EOSINOPHIL % 1.1 % (0.0-4.0); HEMATOCRIT 39.9 % (39.0-51.0); HEMO FLAGS DIFF FINAL; LYMPH % 27.3 % (9.0-44.0); LYMPHOCYTE # 2.5 TH/MM3 (1.0-4.8); MEAN CELL VOLUME 87.2 FL (80.0-100.0); MEAN CORPUSCULAR HEMOGLOBIN 29.9 PG (27.0-34.0); MEAN CORPUSCULAR HGB CONC 34.3 % (32.0-36.0); MONO % 7.1 % (0.0-8.0); NEUT % 63.9 % (16.0-70.0); PLATELET COUNT 248 TH/MM3 (150-450); RED BLOOD COUNT 4.58 MIL/MM3 (4.50-5.90); RED CELL DISTRIBUTION WIDTH 13.1 % (11.6-17.2); WHITE BLOOD COUNT 9.3 TH/MM3 (4.0-11.0)
[2017-03-21 16:45] LABS: ANION GAP 4 MEQ/L (5-15); BICARBONATE 31.1 MEQ/L (21.0-32.0); BLOOD UREA NITROGEN 16 MG/DL (7-18); CHLORIDE 104 MEQ/L (98-107); GLOMERULAR FILTRATION RATE 131 ML/MIN (>89); POTASSIUM 3.9 MEQ/L (3.5-5.1); SODIUM (NA) 139 MEQ/L (136-145)
[2017-03-21 16:50] LABS: CREATINE KINASE 49 U/L (39-308)
--- NOTE | 2017-03-21 17:09 | RADRPT ---
EXAM DATE/TIME: 03/21/2017 16:41 [facility] COMPARISON: No previous studies available for comparison. INDICATIONS : Shortness of breath for 3 days, syncopal episode. IV CONTRAST: 75 cc Omnipaque 350 (iohexol) IV RADIATION DOSE: 5.69 CTDIvol (mGy) MEDICAL HISTORY : Cardiovascular disease. Hepatitis C. SURGICAL HISTORY : None. ENCOUNTER: Initial ACUITY: 3 days PAIN SCALE: 6/10 LOCATION: chest TECHNIQUE: Volumetric scanning of the chest was performed using a pulmonary embolism protocol MIP images were re constructed. Using automated exposure control and adjustment of the mA and/or kV according to patien t size, radiation dose was kept as low as reasonably achievable to obtain optimal diagnostic quality images. DICOM format image data is available electronically for review and comparison. Follow-up recommendations for detected pulmonary nodules are based at a minimum on nodule size and pa tient risk factors according to Fleischner Society Guidelines. FINDINGS: PULMONARY ARTERIES: No filling defects are seen in the pulmonary arteries through the segmental level. LUNGS: There is no consolidation or pneumothorax . No concerning pulmonary nodule is visualized. PLEURAE: There is no pleural thickening or pleural effusion. MEDIASTINUM: There is good visualization of the great vessels of the middle mediastinum. No evidence of mediastin al or hilar adenopathy/mass. MUSCULOSKELETAL: Within normal limits for patient age. MISCELLANEOUS: The visualized upper abdominal organs demonstrate no acute abnormality. CONCLUSION: 1. No evidence of acute PE. 2. No evidence of acute cardiopulmonary process. Jass Cowan MD on March 21, 2017 at 17:06 Board Certified Radiologist. This report was verified electronically.
--- NOTE | 2017-03-21 17:15 | PD ---
HPI Chief Complaint: Medical Clearance Time Seen by Provider: 15:19 Travel History International Travel<30 days: No Contact w/Intl Traveler<30days: No Traveled to known affect area: No History of Present Illness HPI 26-year-old male presents to the emergency department with shortness of breath, subjective fever and chills, and a single episode of nonbloody, nonbilious vomiting, and loose stools. Patient states that he is also had syncope 2 times since he's been in rehabilitation for 10 days. Pt is in [facility] for rehabilitation from IV heroin use. Patient denies any illicit drug use since entering rehabilitation on over . Currently patient has occasional "chest pressure" without radiation of pain. States he has a history of endocarditis in October and this feels similar to previous episode. PFSH Past Medical History Blood Disorders: No Anxiety: No Depression: No Heart Rhythm Problems: No Cancer: No Cardiovascular Problems: Yes (ENDOCARDITIS) High Cholesterol: No Chest Pain: No Congestive Heart Failure: No Diabetes: No Diminished Hearing: No Endocrine: No GERD: Yes Genitourinary: No Hepatitis: Yes (C) Immune Disorder: No Medical other: Yes (IV DRUG USER ) Musculoskeletal: No Neurologic: No Psychiatric: No Reproductive: No Respiratory: No Immunizations Current: Yes Pneumonia: Yes Thyroid Disease: No Tetanus Vaccination: < 5 Years Influenza Vaccination: No Past Surgical History Surgical History: No Previous Surgery Other Surgery: No Social History Alcohol Use: No (NO LONGER DRINKS) Tobacco Use: Yes (1PPD ) Substance Use: Yes (OPIATES LAST USED 10/30/2016) Allergies-Medications (Allergen,Severity, Reaction): Coded Allergies: Sulfa (Sulfonamide Antibiotics) (Unverified Allergy, Severe, 03/21/17) Reported Meds & Prescriptions Reported Meds & Active Scripts Active Medrol Dosepak (Methylprednisolone) 4 Mg Dspk 4 Mg PO DIRECTED Per Pharmacist direction Ventolin Hfa 18 GM Inh (Albuterol Sulfate) 90 Mcg/Act Aer 2 Puff INH Q4-6H PRN Review of Systems Except as stated in HPI: all other systems reviewed are Neg Physical Exam Narrative GENERAL: Well developed well nourished in no apparent distress SKIN: Focused skin assessment warm/dry. HEAD: Atraumatic. Normocephalic. EYES: Pupils equal and round. No scleral icterus. No injection or drainage. ENT: No nasal bleeding or discharge. Mucous membranes pink and moist. NECK: Trachea midline. No JVD. No lymphadenopathy CARDIOVASCULAR: Regular rate and rhythm. Occasional gallop appreciated RESPIRATORY: No accessory muscle use. Clear to auscultation. Breath sounds equal bilaterally. Pain not reproducible with palpation GASTROINTESTINAL: Abdomen soft, non-tender, nondistended. MUSCULOSKELETAL: No obvious deformities. No clubbing. No cyanosis. No edema. NEUROLOGICAL: Awake and alert. No obvious cranial nerve deficits. Motor grossly within normal limits. Normal speech. PSYCHIATRIC: Appropriate mood and affect; insight and judgment normal. Data Data Last Documented VS Vital Signs Date Time Temp Pulse Resp B/P (MAP) Pulse Ox O2 Delivery O2 Flow Rate FiO2 03/21/17 18:16 03/21/17 16:01 98.3 89 18 100 Orders Orders Electrocardiogram (03/21/17 ) Chest, Pa & Lat (03/21/17 ) Complete Blood Count With Diff (03/21/17 15:30) Basic Metabolic Panel (Bmp) (03/21/17 15:30) Ckmb (Isoenzyme) Profile (03/21/17 15:30) Troponin I (03/21/17 15:30) Iv Access Insert/Monitor (03/21/17 15:30) Ecg Monitoring (03/21/17 15:30) Oximetry (03/21/17 15:30) Oxygen Administration (03/21/17 15:30) Sodium Chloride 0.9% Flush (Ns Flush) (03/21/17 15:30) Ct Pulmonary Angiogram (03/21/17 ) Iohexol 350 Inj (Omnipaque 350 Inj) (03/21/17 13:18) Westergren Sedimentation Rate (03/21/17 17:22) Ed Discharge Order (03/21/17 18:47) Labs Laboratory Tests Test 03/21/17 15:54 White Blood Count 9.3 TH/MM3 Red Blood Count 4.58 MIL/MM3 Hemoglobin 13.7 GM/DL Hematocrit 39.9 % Mean Corpuscular Volume 87.2 FL Mean Corpuscular Hemoglobin 29.9 PG Mean Corpuscular Hemoglobin Concent 34.3 % Red Cell Distribution Width 13.1 % Platelet Count 248 TH/MM3 Mean Platelet Volume 7.2 FL Neutrophils (%) (Auto) 63.9 % Lymphocytes (%) (Auto) 27.3 % Monocytes (%) (Auto) 7.1 % Eosinophils (%) (Auto) 1.1 % Basophils (%) (Auto) 0.6 % Neutrophils # (Auto) 5.9 TH/MM3 Lymphocytes # (Auto) 2.5 TH/MM3 Monocytes # (Auto) 0.7 TH/MM3 Eosinophils # (Auto) 0.1 TH/MM3 Basophils # (Auto) 0.1 TH/MM3 CBC Comment DIFF FINAL Differential Comment Erythrocyte Sedimentation Rate 6 mm/hr Blood Urea Nitrogen 16 MG/DL Creatinine 0.72 MG/DL Random Glucose 85 MG/DL Calcium Level 9.4 MG/DL Sodium Level 139 MEQ/L Potassium Level 3.9 MEQ/L Chloride Level 104 MEQ/L Carbon Dioxide Level 31.1 MEQ/L Anion Gap 4 MEQ/L Estimat Glomerular Filtration Rate 131 ML/MIN Total Creatine Kinase 49 U/L Troponin I LESS THAN 0.02 NG/ML MDM Medical Decision Making Medical Screen Exam Complete: Yes Emergency Medical Condition: Yes Differential Diagnosis Endocarditis, PE, asthma, NC Narrative Course 26-year-old male presents to the emergency department with shortness of breath, subjective fever and chills, and a single episode of nonbloody, nonbilious vomiting, and loose stools. Patient states that he is also had syncope 2 times since he's been in rehabilitation for 10 days. Pt is in [facility] for rehabilitation from IV heroin use. Patient denies any illicit drug use since entering rehabilitation on March 08. Currently patient has occasional " chest pressure" without radiation of pain. States he has a history of endocarditis in October and this feels similar to previous episode. Vital signs stable- initially tachycardic and decreased to 89. Cardiac enzymes negative. EKG- possible LVH with early repolarization(?) Last Impressions Chest X-Ray 03/21/17 0000 Signed Impressions: Service Date/Time: Tuesday, March 21, 2017 13:49 - CONCLUSION: No acute disease. Juanjo Patel MD CT Angiography 03/21/17 0000 Signed Impressions: Service Date/Time: Tuesday, March 21, 2017 16:41 - CONCLUSION: 1. No evidence of acute PE. 2. No evidence of acute cardiopulmonary process. Jass Cowan MD Laboratory Tests Test 03/21/17 15:54 White Blood Count 9.3 TH/MM3 Red Blood Count 4.58 MIL/MM3 Hemoglobin 13.7 GM/DL Hematocrit 39.9 % Mean Corpuscular Volume 87.2 FL Mean Corpuscular Hemoglobin 29.9 PG Mean Corpuscular Hemoglobin Concent 34.3 % Red Cell Distribution Width 13.1 % Platelet Count 248 TH/MM3 Mean Platelet Volume 7.2 FL Neutrophils (%) (Auto) 63.9 % Lymphocytes (%) (Auto) 27.3 % Monocytes (%) (Auto) 7.1 % Eosinophils (%) (Auto) 1.1 % Basophils (%) (Auto) 0.6 % Neutrophils # (Auto) 5.9 TH/MM3 Lymphocytes # (Auto) 2.5 TH/MM3 Monocytes # (Auto) 0.7 TH/MM3 Eosinophils # (Auto) 0.1 TH/MM3 Basophils # (Auto) 0.1 TH/MM3 CBC Comment DIFF FINAL Differential Comment Erythrocyte Sedimentation Rate 6 mm/hr Blood Urea Nitrogen 16 MG/DL Creatinine 0.72 MG/DL Random Glucose 85 MG/DL Calcium Level 9.4 MG/DL Sodium Level 139 MEQ/L Potassium Level 3.9 MEQ/L Chloride Level 104 MEQ/L Carbon Dioxide Level 31.1 MEQ/L Anion Gap 4 MEQ/L Estimat Glomerular Filtration Rate 131 ML/MIN Total Creatine Kinase 49 U/L Troponin I LESS THAN 0.02 NG/ML Patient left AGAINST MEDICAL ADVICE prior to final results of ESR. Patient was advised to stay for full evaluation however, patient decided to leave. He was advised of the risk of leaving. Pt was competent and had decision making capacity. Note that during the course of treatment before finally signing out AMA, he did leave the hospital bed for an extended period of time without the knowledge of staff. According to staff members, he went outside of the hospital but it is unknown what activity he was engaged in at the time. He still have an IV saline lock and EKG electrodes in place. He has an extensive history of heroin use and it was a concern that he used all outside the hospital during this time. AMA: The risks of leaving against medical advice without further evaluation treatment were discussed with the patient. These risks include cardiac dysfunction, cardiac dysrhythmia, possible heart attack, possible stroke or . The patient indicated understanding of these risks and appeared to have the capacity to make this decision. Diagnosis Primary Impression: Shortness of breath Disposition: AGAINST MEDICAL ADVICE Condition: Stable Ceci Akins Mar 21, 2017 17:15
[2017-03-22] MEDS ORDERED: MEDR4PAK PO (00:34)
[2017-03-22] MEDS ORDERED: VENTAER INH (00:34)
--- NOTE | 2017-03-22 11:46 | EKG ---
Date Performed: 03/21/2017 Time Performed: 14:15:03 PTAGE: 26 years EKG: Sinus rhythm NORMAL ECG Compared to prior tracing no significant change PREVIOUS TRACING : 10/30/2016 19.26 DOCTOR: Ramy Gill Interpretating Date/Time 03/22/2017 11:45:57
== END 2017-03-21 18:16 | disposition left against medical advice (07) ==
LOC: NEPD 13:17
DX: R06.02 Shortness of breath (principal); R50.9 Fever, unspecified; R55 Syncope and collapse; R07.89 Other chest pain; F17.200 Nicotine dependence, unspecified, uncomplicated
CPT/HCPCS: 71020; 71275; 80048; 82550; 84484; 85025; 85652; 93005; 99285; Q9967

== ENCOUNTER 2017-03-21 20:45 | Emergency (ER) | payer SELFPAY ==
[2017-03-21 20:47] VITALS: BP 119/79; PULSE 90; RESP 16; TEMP 98.7; O2SAT 99
[2017-03-21 22:48] VITALS: BP 130/91; PULSE 70; RESP 18; O2SAT 98
--- NOTE | 2017-03-22 00:22 | PD ---
HPI Chief Complaint: Medical Clearance Time Seen by Provider: 23:16 Travel History International Travel<30 days: No Contact w/Intl Traveler<30days: No Traveled to known affect area: No History of Present Illness HPI PATIENT SEEN EARLIER BECAUSE HE WAS C/O ALLEGED SOB AND MADE US AWARE THAT HE HAD ENDOCARDITIS IN PAST...YET IN RECORD REVIEW HE SIGNED OUT AMA DURING HIS INPATIENT CARE...FURTHERMORE, HE SIGNED OUT AMA TODAY BECAUSE HE NEEDED TO SMOKE...PATIENT THEN RETURNED WITH SAME COMPLAINT PFS Past Medical History Blood Disorders: No Anxiety: No Depression: No Heart Rhythm Problems: No Cancer: No Cardiovascular Problems: Yes (ENDOCARDITIS) High Cholesterol: No Chest Pain: No Congestive Heart Failure: No Diabetes: No Patient Takes Glucophage: No Diminished Hearing: No Endocrine: No Gastrointestinal Disorders: Yes GERD: Yes Genitourinary: No Hepatitis: Yes (C) Hypertension: No Immune Disorder: No Implanted Vascular Access Dvce: No Musculoskeletal: No Neurologic: No Psychiatric: No Reproductive: No Respiratory: No Immunizations Current: Yes Pneumonia: Yes Thyroid Disease: No Tetanus Vaccination: < 5 Years Influenza Vaccination: No Past Surgical History Surgical History: No Previous Surgery Other Surgery: No Social History Alcohol Use: No (NO LONGER DRINKS) Tobacco Use: Yes (1PPD ) Substance Use: Yes (IV OPIATES LAST 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/08) Allergies-Medications (Allergen,Severity, Reaction): Coded Allergies: Sulfa (Sulfonamide Antibiotics) (Unverified Allergy, Severe, 03/21/17) Reported Meds & Prescriptions Reported Meds & Active Scripts Active No Active Prescriptions or Reported Medications Review of Systems General / Constitutional: No: Fever Eyes: No: Visual changes HENT: No: Headaches Cardiovascular: No: Chest Pain or Discomfort Respiratory: Positive: Shortness of Breath Gastrointestinal: No: Abdominal Pain Genitourinary: No: Dysuria Musculoskeletal: No: Pain Skin: No Rash Neurologic: No: Weakness Psychiatric: No: Depression Endocrine: No: Polydipsia Hematologic/Lymphatic: No: Easy Bruising Physical Exam Narrative GENERAL: SKIN: Warm and dry. HEAD: Atraumatic. Normocephalic. EYES: Pupils equal and round. No scleral icterus. No injection or drainage. ENT: No nasal bleeding or discharge. Mucous membranes pink and moist. NECK: Trachea midline. No JVD. CARDIOVASCULAR: Regular rate and rhythm. RESPIRATORY: No accessory muscle use. Clear to auscultation. Breath sounds equal bilaterally. GASTROINTESTINAL: Abdomen soft, non-tender, nondistended. MUSCULOSKELETAL: Extremities without clubbing, cyanosis, or edema. No obvious deformities. NEUROLOGICAL: Awake and alert. No obvious cranial nerve deficits. Motor grossly within normal limits. Five out of 5 muscle strength in the arms and legs. Normal speech. PSYCHIATRIC: Appropriate mood and affect; insight and judgment normal. Data Data Last Documented VS Vital Signs Date Time Temp Pulse Resp B/P (MAP) Pulse Ox O2 Delivery O2 Flow Rate FiO2 03/21/17 22:48 70 18 130/91 (104) 98 Room Air 03/21/17 20:47 98.7 MDM Medical Decision Making Medical Screen Exam Complete: Yes Emergency Medical Condition: Yes Medical Record Reviewed: Yes Differential Diagnosis N/A Narrative Course ON EVALUATION TODAY NO FEVER, NO ELEVATED ESR, NO LEUKOCYTOSIS, CT CHEST NEG FOR PE/PULM EDEMA/PERICARDIAL EFFUSION/PNA... Diagnosis Primary Impression: MEDICAL CLEARANCE Additional Impression: Bronchitis Patient Instructions: Acute Bronchitis (ED), General Instructions Scripts Methylprednisolone Dosepak (Medrol Dosepak) 4 Mg Dspk 4 MG PO DIRECTED, #1 DSPK 0 Refills Per Pharmacist direction Prov: Roland Salinas MD 03/22/17 Albuterol 18 GM Inh (Ventolin Hfa 18 GM Inh) 90 Mcg/Act Aer 2 PUFF INH Q4-6H Y for SHORTNESS OF BREATH, #1 INHALER 0 Refills Prov: Roland Salinas MD 03/22/17 Disposition: 01 DISCHARGE HOME Condition: Stable Roland Salinas MD Mar 22, 2017 00:22
[2017-03-22] MEDS ORDERED: MEDR4PAK PO (00:34)
[2017-03-22] MEDS ORDERED: VENTAER INH (00:34)
== END 2017-03-22 00:54 | disposition home or self-care (01) ==
LOC: NEPD 20:45
DX: J20.9 Acute bronchitis, unspecified (principal); F17.200 Nicotine dependence, unspecified, uncomplicated
CPT/HCPCS: 99284

== ENCOUNTER 2017-06-12 21:10 | Emergency (ER) | payer SELFPAY ==
[~2017-06-12] VITALS: Ht 175.3 cm; Wt 72.0 kg
[~2017-06-12 21:10] MED LIST changes: -CEPH-460 PO; -CHLO25TA38 PO; -CLIN1CAP5 PO; -DICL75TA PO; +MEDR4PAK PO; +VENTAER INH
[2017-06-12 21:17] VITALS: BP 119/76; PULSE 120; RESP 20; TEMP 98; O2SAT 96
[2017-06-12 21:22] VITALS: RESP 20
[2017-06-12 21:23] VITALS: BP 120/66; PULSE 120; RESP 20; TEMP 98; O2SAT 98
[2017-06-12 21:51] LABS: AUTOMATED NEUTROPHIL # 13.3 TH/MM3 (1.8-7.7); BASOPHIL % 0.1 % (0.0-2.0); EOSINOPHIL % 0.1 % (0.0-4.0); HEMATOCRIT 41.4 % (39.0-51.0); HEMOGLOBIN 14.4 GM/DL (13.0-17.0); LYMPH % 7.3 % (9.0-44.0); LYMPHOCYTE # 1.1 TH/MM3 (1.0-4.8); MEAN CELL VOLUME 89.6 FL (80.0-100.0); MEAN CORPUSCULAR HEMOGLOBIN 31.1 PG (27.0-34.0); MEAN CORPUSCULAR HGB CONC 34.7 % (32.0-36.0); MEAN PLATELET VOLUME 7.4 FL (7.0-11.0); MONO % 6.9 % (0.0-8.0); MONOCYTE # 1.1 TH/MM3 (0-0.9); NEUT % 85.6 % (16.0-70.0); PLATELET COUNT 235 TH/MM3 (150-450); RED BLOOD COUNT 4.62 MIL/MM3 (4.50-5.90); RED CELL DISTRIBUTION WIDTH 14.6 % (11.6-17.2); WHITE BLOOD COUNT 15.6 TH/MM3 (4.0-11.0)
--- NOTE | 2017-06-12 21:53 | PD ---
HPI Chief Complaint: OD/ Ingestion Time Seen by Provider: 21:17 Travel History International Travel<30 days: No Contact w/Intl Traveler<30days: No Traveled to known affect area: No History of Present Illness HPI The patient is a 26 year old male who presents to the [facility] emergency department with a history of being found unresponsive in a [employer] bathroom prior to arrival. The patient reports that he injected heroin. The patient believes it may have been mixed with fentanyl. 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 He reports that he had been clean and sober for 2-1/2 months prior to this. The patient was found by ambulance services. The patient responded to a sternal rub. No Narcan was administered prior to arrival. The patient is drowsy on arrival, however otherwise he is able to stay awake to provide his history. The patient denies any prior history of hepatitis, however he does have a history of endocarditis treated with his full course of antibiotic last year, pneumonia was also diagnosed 2 years ago. Otherwise on review of systems, the patient denies having any known recent fevers, cough, congestion, neck pain, chest pain, shortness of breath, abdominal pain, vomiting, diarrhea, urinary symptoms, or neurologic symptoms. The patient denies having any suicidal homicidal lesions. He denies having any thoughts of intentionally harming himself PFSH Past Medical History Narrative Medical The patient's past medical history is significant for pneumonia, endocarditis, history of IV drug use. Blood Disorders: No Anxiety: No Depression: No Heart Rhythm Problems: No Cancer: No Cardiovascular Problems: Yes (ENDOCARDITIS) High Cholesterol: No Chest Pain: No Congestive Heart Failure: No Diabetes: No Diminished Hearing: No Endocrine: No Gastrointestinal Disorders: Yes GERD: Yes Genitourinary: No Hepatitis: Yes (C) Hypertension: No Immune Disorder: No Implanted Vascular Access Dvce: No Musculoskeletal: No Neurologic: No Psychiatric: No Reproductive: No Respiratory: No Immunizations Current: Yes Pneumonia: Yes Thyroid Disease: No Tetanus Vaccination: < 5 Years Influenza Vaccination: Yes Past Surgical History Narrative Surgical The patient denies having any past surgical history Other Surgery: No Social History Alcohol Use: Yes (Occasion) Tobacco Use: Yes (1PPD ) Substance Use: Yes (IV OPIATES ) Allergies-Medications (Allergen,Severity, Reaction): Coded Allergies: Sulfa (Sulfonamide Antibiotics) (Unverified Allergy, Severe, 06/12/17) Reported Meds & Prescriptions Reported Meds & Active Scripts Active Review of Systems Except as stated in HPI: all other systems reviewed are Neg General / Constitutional: No: Fever Eyes: No: Visual changes HENT: No: Headaches Cardiovascular: No: Chest Pain or Discomfort Respiratory: No: Shortness of Breath Gastrointestinal: No: Abdominal Pain Genitourinary: No: Dysuria Musculoskeletal: No: Pain Skin: No Rash Neurologic: Positive: Change in Mentation, No: Weakness, Focal Abnormalities, Slurred Speech, Sensory Disturbance Psychiatric: No: Depression Endocrine: No: Polydipsia Hematologic/Lymphatic: No: Easy Bruising Physical Exam Narrative General: The patient is a well-developed well-nourished male in no acute distress. Head and Neck exam: Head is normocephalic atraumatic. Eyes: EOMI, pupils are equal round and reactive to light. Nose: Midline septum with pink mucous membranes Mouth: Dentition unremarkable. Moist mucus membranes. Posterior oropharynx is not erythematous. No tonsillar hypertrophy. Uvula midline. Airway patent. Neck: No palpable lymphadenopathy. No nuchal rigidity. No thyromegaly. Cardiovascular: Regular rate and rhythm without murmurs, gallops, or rubs. No pulse deficit to the extremities on simultaneous auscultation and palpation of his radial artery. Lungs: Clear to auscultation bilaterally. No wheezes, rhonchi, or rales. Abdomen: Soft, without tenderness to palpation in all 4 quadrants of the abdomen. No guarding, rebound, or rigidity. Normal bowel sounds are audible. No tenderness on palpation of McBurney's point. Negative Stuart sign. Extremities: No clubbing, cyanosis, or edema. 2+ pulses in all 4 extremities. No calf tenderness on palpation. Back: No spinous process tenderness to palpation. No costovertebral angle tenderness to palpation. Neurologic Exam: Cranial nerves 2-12 were intact on exam. Strength is 5/5 in all 4 extremities. No sensory deficits noted. The patient is oriented to person, place, time, and situation. The patient is drowsy on examination. He is able to stay awake and answer all questions Skin Exam: No rash noted. Intact skin that is warm and dry. Data Data Last Documented VS Vital Signs Date Time Temp Pulse Resp B/P (MAP) Pulse Ox O2 Delivery O2 Flow Rate FiO2 06/12/17 21:23 98.0 120 20 120/66 (84) 98 Room Air Orders Orders Electrocardiogram (06/12/17 21:17) Complete Blood Count With Diff (06/12/17 21:17) Comprehensive Metabolic Panel (06/12/17 21:17) Urinalysis - C+S If Indicated (06/12/17 21:17) Magnesium (Mg) (06/12/17 21:17) Chest, Single Ap (06/12/17 21:17) Iv Access Insert/Monitor (06/12/17 21:17) Ecg Monitoring (06/12/17 21:17) Oximetry (06/12/17 21:17) Drug Screen, Random Urine (06/12/17 21:17) Alcohol (Ethanol) (06/12/17 21:17) Salicylates (Aspirin) (06/12/17 21:17) Potassium Chloride (Kcl) (06/12/17 23:30) Labs Laboratory Tests Test 06/12/17 21:30 06/12/17 22:20 White Blood Count 15.6 TH/MM3 Red Blood Count 4.62 MIL/MM3 Hemoglobin 14.4 GM/DL Hematocrit 41.4 % Mean Corpuscular Volume 89.6 FL Mean Corpuscular Hemoglobin 31.1 PG Mean Corpuscular Hemoglobin Concent 34.7 % Red Cell Distribution Width 14.6 % Platelet Count 235 TH/MM3 Mean Platelet Volume 7.4 FL Neutrophils (%) (Auto) 85.6 % Lymphocytes (%) (Auto) 7.3 % Monocytes (%) (Auto) 6.9 % Eosinophils (%) (Auto) 0.1 % Basophils (%) (Auto) 0.1 % Neutrophils # (Auto) 13.3 TH/MM3 Lymphocytes # (Auto) 1.1 TH/MM3 Monocytes # (Auto) 1.1 TH/MM3 Eosinophils # (Auto) 0.0 TH/MM3 Basophils # (Auto) 0.0 TH/MM3 CBC Comment DIFF FINAL Differential Comment Salicylates Level LESS THAN 1.7 MG/DL Blood Urea Nitrogen 16 MG/DL Creatinine 0.67 MG/DL Random Glucose 130 MG/DL Total Protein 6.5 GM/DL Albumin 3.6 GM/DL Calcium Level 7.5 MG/DL Magnesium Level 2.0 MG/DL Alkaline Phosphatase 55 U/L Aspartate Amino Transf (AST/SGOT) 16 U/L Alanine Aminotransferase (ALT/SGPT) 63 U/L Total Bilirubin 0.2 MG/DL Sodium Level 146 MEQ/L Potassium Level 3.2 MEQ/L Chloride Level 84 MEQ/L Carbon Dioxide Level 19.9 MEQ/L Anion Gap 42 MEQ/L Estimat Glomerular Filtration Rate 142 ML/MIN Ethyl Alcohol Level LESS THAN 3 MG/DL MDM Medical Decision Making Medical Screen Exam Complete: Yes Emergency Medical Condition: Yes Medical Record Reviewed: Yes Interpretation(s) Last Impressions Chest X-Ray 06/12/172116 Signed Impressions: Service Date/Time: Monday, June 12, 2017 21:32 - CONCLUSION: 1. No acute findings. Alessio Nieves MD Differential Diagnosis Intentional versus unintentional overdose on opiates Narrative Course During the course of the patient's emergency department visit, the patient's history, examination, and differential diagnosis were reviewed with the patient. The patient was placed on a security monitor with oximetry and frequent blood pressure monitoring. The patient had IV access obtained and blood work sent for analysis. The patient reported feeling thirsty and was given a bottle of Gatorade. The patient was tolerating drinking fluids well. The patient's laboratory studies were reviewed and remarkable for a white count of 15.6, hemoglobin 14.4, platelets 235 with 85.6 neutrophils, lymphocytes 7.3, CMP is remarkable for sodium of 146, potassium 3.2 which was supplemented orally , chloride 84, bicarbonate 19.9, glucose 130, salicylate less than 1.7, alcohol level less than 3 Radiology studies were reviewed and remarkable for a chest x-ray that shows no acute abnormality. The patient has been remained awake and alert during his observation. His girlfriend will be driving him home monitoring him. The patient was instructed regarding the importance of avoiding heroin and injection of other opiates. The patient is resting comfortably and feels better, is alert and in no distress. The patient's results and examination findings were discussed with the patient. The repeat examination is unremarkable and benign. The history, exam, diagnostic testing, and current condition do not suggest any significant pathology to warrant further testing, continued ED treatment, admission, or surgical evaluation at this point. The vital signs have been stable. The patient does not have uncontrollable pain, intractable vomiting, or other significant symptoms. The patient's condition is stable and appropriate for discharge. The patient will pursue further outpatient evaluation with a primary care physician or other designated or consulting physician as indicated in the discharge instructions. The patient expressed understanding and was agreeable with this plan. Diagnosis Primary Impression: Opiate overdose Qualified Codes: T40.601A - Poisoning by unspecified narcotics, accidental ( unintentional), initial encounter Referrals: [facility] Patient Instructions: General Instructions, Opioid Overdose (ED) Med/Other Pt SpecificInfo: Prescription(s) given Scripts Naloxone Nasal [place] (Narcan Nasal [place]) 4 Mg/Act [place] 4 MG NASAL ONCE Y for OPIOID OVERDOSE, #1 SPRAY 0 Refills Contents of 1 nasal spray as a single dose; may repeat every 2 to 3 minutes in alternating nostrils until medical assistance becomes available. Prov: Zenaida Gill MD 06/12/17 Disposition: 01 DISCHARGE HOME Condition: Stable Zenaida Gill MD Jun 12, 2017 21:53
--- NOTE | 2017-06-12 22:22 | RADRPT ---
EXAM DATE/TIME: 06/12/2017 21:32 [facility] COMPARISON: No previous studies available for comparison. INDICATIONS : Cough. MEDICAL HISTORY : None. SURGICAL HISTORY : None. ENCOUNTER: Initial ACUITY: 1 day PAIN SCORE: 0/10 LOCATION: Bilateral chest FINDINGS: A single view of the chest demonstrates the lungs to be symmetrically aerated without evidence of mas s, infiltrate or effusion. The cardiomediastinal contours are unremarkable. Osseous structures are intact. CONCLUSION: 1. No acute findings. Alessio Nieves MD on June 12, 2017 at 22:19 Board Certified Radiologist. This report was verified electronically.
[2017-06-12 23:06] LABS: ALBUMIN 3.6 GM/DL (3.4-5.0); AST (GOT) 16 U/L (15-37); BICARBONATE 19.9 MEQ/L (21.0-32.0); BLOOD UREA NITROGEN 16 MG/DL (7-18); CALCIUM 7.5 MG/DL (8.5-10.1); CHLORIDE 84 MEQ/L (98-107); CREATININE 0.67 MG/DL (0.60-1.30); GLOMERULAR FILTRATION RATE 142 ML/MIN (>89); GLUCOSE,RANDOM 130 MG/DL (74-106); SODIUM (NA) 146 MEQ/L (136-145)
[2017-06-12 23:11] LABS: ALKALINE PHOSPHATASE 55 U/L (45-117); ALT (GPT) 63 U/L (12-78); TOTAL BILIRUBIN ADULT 0.2 MG/DL (0.2-1.0); TOTAL PROTEIN 6.5 GM/DL (6.4-8.2)
[2017-06-12] MEDS ORDERED: NALO1SPR NASAL (23:26)
[2017-06-12] MEDS ORDERED: POTASSIUM CHLORIDE 20 MEQ CONTROLLED RELEASE TAB PO ONE (23:30)
--- NOTE | 2017-06-16 13:24 | EKG ---
Date Performed: 06/12/2017 Time Performed: 23:02:39 PTAGE: 26 years EKG: SINUS TACHYCARDIA ABNORMAL RHYTHM ECG PREVIOUS TRACING : 03/21/2017 14.15 Since the prior tracing, there has been no significant ramos DOCTOR: Jamel Campos Interpretating Date/Time 06/16/2017 13:23:56
== END 2017-06-12 23:40 | disposition home or self-care (01) ==
LOC: NEPC 21:10
DX: T40.1X1A Poisoning by heroin, accidental (unintentional), initial encounter (principal); F17.200 Nicotine dependence, unspecified, uncomplicated; R00.0 Tachycardia, unspecified
CPT/HCPCS: 71045; 80053; 80307; 83735; 85025; 93005